=== PATIENT | female | born 1970 | race Caucasian/White ===

== ENCOUNTER 2016-06-25 00:14 | Emergency (ER) | payer OTHER ==
[~2016-06-25] VITALS: Ht 165.1 cm; Wt 113.4 kg
[~2016-06-25 00:14] MED LIST: FAMO20TA5 PO; OMEP20TA2 PO; OXYC-200 PO
[2016-06-25] MEDS ORDERED: CIPR250T3 PO (00:29)
[2016-06-25] MEDS ORDERED: METH1TAB PO (00:29)
[2016-06-25 00:38] LABS: KETONES,URINE 1+ (NEGATIVE); LEUKOCYTE ESTERASE ,URINE 1+ (NEGATIVE); NITRITE,URINE NEGATIVE (NEGATIVE); PH,URINE 6.5 (5-9); PROTEIN,URINE 2+ (NEGATIVE); UROBILINOGEN,URINE NORMAL (NORMAL)
[2016-06-25 00:49] LABS: BILIRUBIN,URINE 1+ (NEGATIVE); CALCIUM OXALATE CRYSTALS,UR MODERATE /LPF
[2016-06-25] MEDS ORDERED: NS IV 1000 ML 1,000 ML IV ONE (00:53)
[2016-06-25] MEDS ORDERED: ONDANSETRON 4 MG/2 ML (SDV) Z0FRAN IVP ONE (01:00)
[2016-06-25] MEDS ORDERED: fentaNYL INJECTION 100 MCG/2 ML AMP IVP ONE (01:00)
[2016-06-25] MEDS ORDERED: HYDROmorphone (DILAUDID) 2 MG/ML VIAL IVP STA (01:09)
[2016-06-25 01:20] LABS: BASOPHILS # (AUTO) 0.1 10^3/uL (0.0-0.1); BASOPHILS % (AUTO) 0 % (0-10); EOSINOPHILS # (AUTO) 0.2 10^3/uL (0.0-0.3); EOSINOPHILS % (AUTO) 1 % (0-10); LYMPHOCYTES # (AUTO) 2.5 X 10^3 (1.0-4.0); LYMPHOCYTES % (AUTO) 16 % (12-44); MEAN CORPUSCULAR HEMOGLOBIN 28 PG (25-34); MEAN CORPUSCULAR HGB CONC 34 G/DL (32-36); MEAN CORPUSCULAR VOLUME 82 FL (80-99); MEAN PLATELET VOLUME 9.5 FL (7.4-10.4); MONOCYTES % (AUTO) 7 % (0-12); NEUTROPHILS # (AUTO) 11.3 X 10^3 (1.8-7.8); NEUTROPHILS % (AUTO) 76 % (42-75); PLATELET COUNT 381 10^3/uL (130-400); RED BLOOD COUNT 4.55 10^6/uL (4.35-5.85); RED CELL DISTRIBUTION WIDTH 14.4 % (10.0-14.5)
[2016-06-25 01:35] LABS: BILIRUBIN,TOTAL 0.3 MG/DL (0.1-1.0); CALCIUM 9.1 MG/DL (8.5-10.1); CREATININE SERUM 1.12 MG/DL (0.60-1.30); POTASSIUM 3.8 MMOL/L (3.6-5.0); TOTAL PROTEIN 7.3 G/DL (6.4-8.2); hs C REACTIVE PROTEIN 4.26 MG/DL (0.00-0.50)
[2016-06-25 01:36] LABS: BAND NEUTROPHILS 0 %; BASOPHILS % (MANUAL) 0 %; EOSINOPHILS % (MANUAL) 1 %; LYMPHOCYTES % (MANUAL) 25 %; NEUTROPHILS % (MANUAL) 70 %
--- NOTE | 2016-06-25 01:36 | ED Abdominal Pain ---
General Chief Complaint: -Female Stated Complaint: BLADDER PAIN Nursing Triage Note: PELVIC PAIN RADIATING TO LEFT FLANK/BACK. WORSE TONIGHT Sepsis Screen: No Definite Risk Source of Information: Patient Exam Limitations: No Limitations History of Present Illness Time Seen By Provider: 00:22 Initial Comments This 45-year-old woman presents to the emergency room with left-sided pelvic and flank pain that started about one month ago. It was more mild in nature until the last few hours when it became severe. She is in obvious distress. She has been on antibiotics for about one month for urinary tract infection she has also been on Hyophen for bladder spasms. She denies any bowel problems. She has mild nausea without vomiting. She has urinary frequency. No fever. Her primary care provider is Dr. Love. She denies sexual activity. Allergies and Home Medications Allergies Coded Allergies: No Known Drug Allergies (Unverified , 07/27/10) Home Medications Ciprofloxacin HCl 250 Mg Tablet #28 1 CAP PO BID (Reported) [place]am/Me Blue/Ba/Salicy/Hyo 1 Each Tablet 1 EACH PO UD (Reported) Oxycodone HCl/Acetaminophen 1 Each Tablet #30 1-2 EACH PO Q6H PRN PRN PAIN Prescribed by: LOU MARISCAL on 06/25/168 Phenazopyridine HCl 200 Mg Tablet #10 1 TAB PO TID PRN PRN PAIN Prescribed by: LOU MARISCAL on 06/25/168 Review of Systems Constitutional: no symptoms reported EENTM: No Symptoms Reported Respiratory: No Symptoms Reported Cardiovascular: No Symptoms Reported Gastrointestinal: See HPI Genitourinary: See HPI Musculoskeletal: no symptoms reported Skin: no symptoms reported Psychiatric/Neurological: No Symptoms Reported Endocrine: No Symptoms Reported Past Uwtxwrd-Xikdno-Rsqvfp Hx Patient Social History Alcohol Use: Occasionally Uses Recreational Drug Use: No Smoking Status: Never a Smoker Recent Foreign Travel: No Contact w/Someone Who Travel: No Recent Infectious Disease Expo: No Recent Hopitalizations: No Physical Abuse Screen: No Sexual Abuse: No Immunizations Up To Date Tetanus Booster (TDap): Unknown Seasonal Allergies Seasonal Allergies: No Surgeries HX Surgeries: Yes (BACK) Surgeries: Gallbladder, Orthopedic Respiratory Hx Respiratory Disorders: No Cardiovascular Hx Cardiac Disorders: No Neurological Hx Neurological Disorders: No Reproductive System : No Hx Reproductive Disorders: No Genitourinary Hx Genitourinary Disorders: No Gastrointestinal Hx Gastrointestinal Disorders: No Musculoskeletal Hx Musculoskeletal Disorders: No Endocrine Hx Endocrine Disorders: Yes (obesity) HEENT HX ENT Disorders: No Cancer Hx Cancer: No Psychosocial Hx Psychiatric Problems: No Integumentary HX Skin/Integumentary Disorder: No Blood Transfusions Hx Blood Disorders: No Family Medical History Significant Family History: COPD, Hypertension Physical Exam Vital Signs VS - Last 72 Hours, by Label 06/25/16 00:29 Temp 99.7 Pulse 115 Resp 24 B/P 160/96 Pulse Ox 99 O2 Delivery Room Air Capillary Refill : Less Than 3 Seconds General Appearance: WD/WN moderate distress HEENT: PERRL/EOMI normal ENT inspection Neck: normal inspection Respiratory: lungs clear normal breath sounds no respiratory distress no accessory muscle use Cardiovascular: no edema no murmur tachycardia Gastrointestinal: normal bowel sounds soft tenderness (throughout the left abdomen) Extremities: normal inspection no pedal edema Back: normal inspection no CVA tenderness Neurologic/Psychiatric: retirement benefits specialist II-XII nml as tested no motor/sensory deficits alert normal mood/affect oriented x 3 Skin: normal color warm/dry Progress/Results/Core Measures Results/Orders Lab Results Laboratory Tests Test 06/25/16 00:25 06/25/16 01:07 Range/Units Urine Bacteria TRACE /HPF Urine Bilirubin 1+ H NEGATIVE Urine Calcium Oxalate Crystals MODERATE H /LPF Urine Casts NONE /LPF Urine Clarity CLEAR Urine Color OTHER H Urine Crystals PRESENT H /LPF Urine Culture Indicated YES Urine Glucose (UA) NEGATIVE NEGATIVE Urine Ketones 1+ H NEGATIVE Urine Leukocyte Esterase 1+ H NEGATIVE Urine Mucus NEGATIVE /LPF Urine Nitrite NEGATIVE NEGATIVE Urine Protein 2+ H NEGATIVE Urine RBC NONE /HPF Urine RBC (Auto) 2+ H NEGATIVE Urine Specific [place] 1.025 H 1.016-1.022 Urine Squamous Epithelial Cells 5-10 /HPF Urine Urobilinogen NORMAL NORMAL MG/DL Urine WBC NONE /HPF Urine pH 6.5 5-9 Alanine Aminotransferase (ALT/SGPT) 22 0-55 U/L Albumin 4.0 3.2-4.5 G/DL Alkaline Phosphatase 76 40-136 U/L Anion Gap 13 5-14 MMOL/L Aspartate Amino Transf (AST/SGOT) 17 5-34 U/L BUN/Creatinine Ratio 11 Band Neutrophils 0 % Basophils # (Auto) 0.1 0.0-0.1 10^3/uL Basophils % (Manual) 0 % Basophils (%) (Auto) 0 0-10 % Blood Morphology Comment NORMAL Blood Urea Nitrogen 12 7-18 MG/DL C-Reactive Protein High Sensitivity 4.26 H 0.00-0.50 MG/DL Calcium Level 9.1 8.5-10.1 MG/DL Carbon Dioxide Level 21 21-32 MMOL/L Chloride Level 104 98-107 MMOL/L Creatinine 1.12 0.60-1.30 MG/DL Eosinophils # (Auto) 0.2 0.0-0.3 10^3/uL Eosinophils % (Manual) 1 % Eosinophils (%) (Auto) 1 0-10 % Estimat Glomerular Filtration Rate 53 Glucose Level 109 H 70-105 MG/DL Hematocrit 37 35-52 % Hemoglobin 12.7 11.5-16.0 G/DL Lipase 14 8-78 U/L Lymphocytes # (Auto) 2.5 1.0-4.0 X 10^3 Lymphocytes % (Manual) 25 % Lymphocytes (%) (Auto) 16 12-44 % Mean Corpuscular Hemoglobin 28 25-34 PG Mean Corpuscular Hemoglobin Concent 34 32-36 G/DL Mean Corpuscular Volume 82 80-99 FL Mean Platelet Volume 9.5 7.4-10.4 FL Monocytes # (Auto) 1.0 0.0-1.0 X 10^3 Monocytes % (Manual) 4 % Monocytes (%) (Auto) 7 0-12 % Neutrophils # (Auto) 11.3 H 1.8-7.8 X 10^3 Neutrophils % (Manual) 70 % Neutrophils (%) (Auto) 76 H 42-75 % Platelet Count 381 130-400 10^3/uL Potassium Level 3.8 3.6-5.0 MMOL/L Red Blood Count 4.55 4.35-5.85 10^6/uL Red Cell Distribution Width 14.4 10.0-14.5 % Sodium Level 138 135-145 MMOL/L Total Bilirubin 0.3 0.1-1.0 MG/DL Total Protein 7.3 6.4-8.2 G/DL White Blood Count 15.0 H 4.3-11.0 10^3/uL My Orders Orders-LOU BRAVO MD Ua Culture If Indicated (06/25/16 00:22) Urine Culture (06/25/16 00:25) Cbc With Automated Diff (06/25/16 00:53) Comprehensive Metabolic Panel (06/25/16 00:53) Hs C Reactive Protein (06/25/16 00:53) Lipase (06/25/16 00:53) Saline Lock/Iv-Start (06/25/16 00:53) Ns Iv 1000 Ml (Sodium Chloride 0.9%) (06/25/16 00:53) Fentanyl Injection (Sublimaze Injection (06/25/16 01:00) Ondansetron Injection (Zofran Injectio (06/25/16 01:00) Ct Abdomen/Pelvis W (06/25/16 00:57) Hydromorphone Injection (Dilaudid Inject (06/25/16 01:09) Manual Differential (06/25/16 01:07) Iohexol Injection (Omnipaque 350 Mg/Ml 1 (06/25/16 01:45) Ns (Ivpb) (Sodium Chloride 0.9% Ivpb Bag (06/25/16 01:45) Ketorolac Injection (Toradol Injection) (06/25/16 02:00) Phenazopyridine Tablet (Pyridium Tablet) (06/25/16 02:45) Oxycodone/Apap 5/325mg Tablet (Percocet (06/25/16 02:45) Abdomen/Kub 1view (06/25/16 02:49) Medications Given in ED Current Medications Medications Dose Ordered Sig/Tyrese Route Start Time Stop Time Status Last Admin Dose Admin Fentanyl Citrate 100 mcg ONCE ONCE IVP 06/25/16 01:00 06/25/16 01:01 DC 06/25/16 01:05 100 MCG Ketorolac Tromethamine 30 mg ONCE ONCE IVP 06/25/16 02:00 06/25/16 02:01 DC 06/25/16 02:00 30 MG Ondansetron HCl 4 mg ONCE ONCE IVP 06/25/16 01:00 06/25/16 01:01 DC 06/25/16 01:05 4 MG Oxycodone/ Acetaminophen 1 tab ONCE ONCE PO 06/25/16 02:45 06/25/16 02:46 DC 06/25/16 02:53 1 TAB Phenazopyridine HCl 200 mg ONCE ONCE PO 06/25/16 02:45 06/25/16 02:46 DC 06/25/16 02:52 200 MG Sodium Chloride 1,000 ml @ 0 mls/hr Q0M ONCE IV 06/25/16 00:53 06/25/16 00:56 DC 06/25/16 01:05 0 MLS/HR Vital Signs/I&O Vital Sign - Last 12Hours 06/25/16 00:29 Temp 99.7 Pulse 115 Resp 24 B/P 160/96 Pulse Ox 99 O2 Delivery Room Air Blood Pressure Mean: 117 Point of Care Testing Urine -Bedside: Negative Progress Note #1: Time: 01:37 Progress Note Patient is now on CT for evaluation of her abdominal pain. She was initially treated with fentanyl 100 g which was insufficient for treatment of her pain. She was still in distress from pain. Dilaudid 1 mg was added. Zofran was administered for nausea. IV fluids are infusing. Progress Note #2: Time: 03:02 Progress Note Patient was found to have a small left distal ureteral stone by CT scan. Toradol was added to her pain management and she has comfortable. A ring- enhancing ovarian cyst was also noted on the left. Patient is aware of the cyst and she was encouraged to follow up with her primary care provider to monitor stability. Patient was given Percocet and Pyridium prior to dismissal to help her get through the night. A strainer was provided. She already has an appointment with Dr. Chaudhry for Monday. Diagnostic Imaging Diagonstic Imaging: CT Plain Films/CT/US/NM/MRI: abdomen, pelvis Comments CT abdomen and pelvis viewed by me and stat rad report reviewed. There is a small distal left ureteral stone measuring approximately 3 x 4 mm with associated left hydroureter and hydronephrosis. Ring-enhancing left ovarian cyst was also noted. Departure Impression Impression: Primary Impression: Left ureteral stone Additional Impressions: Left sided abdominal pain Ovarian cyst, left Disposition: HOME, SELF-CARE Condition: Improved Departure-Patient Inst. Decision time for Depature: 02:40 Referrals: RACHID LOVE DO (PCP/Family) Primary Care Physician Patient Instructions: Kidney Stones in Adults Add. Discharge Instructions: Complete your antibiotics as prescribed. Drink plenty of clear liquids. You may discontinue Hyophen. Use Percocet and peridium as prescribed. Keep your appointment with Dr. Chaudhry. Return to the emergency room if symptoms worsen. Please follow-up with your primary care provider or women's health provider regarding your ovarian cyst. It needs to be monitored for stability. All discharge instructions reviewed with patient and/or family. Voiced understanding. Scripts Phenazopyridine HCl (Pyridium)200 Mg Tablet1 Tab PO TID PRN PAIN #10 TAB Prov:LOU BRAVO MD 06/25/16 Oxycodone HCl/Acetaminophen (Percocet 5-325 mg Tablet)1 Each Tablet1-2 Each PO Q6H PRN PAIN #30 TAB Prov:LOU BRAVO MD 06/25/16 Copy Copies To 1: TORI CHAUDHRY MD Copies To 2: RACHID LOVE JOSHUA T MD Jun 25, 2016 01:36
[2016-06-25] MEDS ORDERED: NS 100 ML (IVPB) BAG IV ONE (01:45)
[2016-06-25] MEDS ORDERED: IOHEXOL 350 MG/ML 100 ML (OMNIPAQUE 350) VIAL IV ONE (01:45)
[2016-06-25] MEDS ORDERED: KETOROLAC 30 MG/ML VIAL IVP ONE (02:00)
[2016-06-25] MEDS ORDERED: oxyCODONE/APAP 5/325MG (PERCOCET 5) TABLET PO ONE (02:45)
[2016-06-25] MEDS ORDERED: PHENAZOPYRIDINE 100 MG (PYRIDIUM) TABLET PO ONE (02:45)
[2016-06-25] MEDS ORDERED: OXYC-197 PO (02:48)
[2016-06-25] MEDS ORDERED: PHEN-640 PO (02:48)
[2016-06-25 03:03] VITALS: BP 132/84
--- NOTE | 2016-06-25 07:40 | Diagnostic Imaging Report ---
INDICATION: Left lower quadrant pain. TECHNIQUE: Single supine view of the abdomen 3:19 AM CORRELATION STUDY: None FINDINGS: There is nonvisualization of contrast within the right ureter; however, contrast over the kidney demonstrates no significant caliectasis. Left collecting system unremarkable. Urinary bladder unremarkable. Overlying bowel gas pattern has a nonobstructive appearance. Clips in the right upper quadrant compatible with postcholecystectomy clips. Additional clip in the right mid abdomen superimposed over the ascending colon. IMPRESSION: Nonvisualization of the right ureter on postcontrast imaging, however, no significant caliectasis. Left collecting system unremarkable. Mild severity fecal retention with nonobstructive-appearing bowel gas pattern. Dictated by: Dictated on workstation # [id number]
--- NOTE | 2016-06-25 07:45 | Diagnostic Imaging Report ---
PROCEDURE: CT abdomen and pelvis with contrast. TECHNIQUE: Multiple contiguous axial images were obtained through the abdomen and pelvis after administration of intravenous contrast. INDICATION: Left lower quadrant pain radiating towards the back x1 month. CORRELATION STUDY: 07/27/2010 FINDINGS: LOWER THORAX: Lung bases clear. Small hiatal hernia with minimal wall thickening suggested. LIVER: Diffuse hepatic steatosis. GALLBLADDER: Post cholecystectomy changes. Additional displaced clip over the right anterior mid abdomen. SPLEEN: Unremarkable. PANCREAS: Unremarkable. ADRENAL GLANDS: Unremarkable. KIDNEYS: Mild left-sided hydronephrosis owing to a small stone in the distal left ureter measuring 3 x 1 mm. Right kidney unremarkable. ABDOMINAL AORTA: Unremarkable, nonaneurysmal. GASTROINTESTINAL TRACT: No obstruction or inflammation. Appendix projects medially in the right lower quadrant and unremarkable. No abdominal ascites or free air. URINARY BLADDER: Relatively decompressed not well evaluated. REPRODUCTIVE: Uterus unremarkable. There is fullness of the left adnexa which is likely partially collapsing left ovarian cyst measuring approximately 3.8 cm. No free pelvic fluid. OSSEOUS STRUCTURES: No acute abnormality. IMPRESSION: 1. Mild left-sided obstruction owing to thin 3 x 1 mm stone distal left ureter. 2. There is complex appearance of the left ovary which is prominent. May be associated with collapsing ovarian cyst. Perhaps consideration for pelvic sonography for followup. Dictated by: Dictated on workstation # [id number]
== END 2016-06-25 03:07 | disposition home or self-care (01) ==
LOC: EDUNIT# 00:14 → ER 00:17
DX: N13.2 Hydronephrosis with renal and ureteral calculous obstruction (principal); N83.202 Unspecified ovarian cyst, left side
CPT/HCPCS: 36415; 74000; 74177; 80053; 81000; 83690; 84703; 85007; 85027; 86141; 87088; 96361; 96374; 96375; 96376

== ENCOUNTER 2016-07-07 05:37 | Outpatient (CLI) | payer OTHER ==
[~2016-07-07] VITALS: Ht 165.1 cm; Wt 132.0 kg
[~2016-07-07 05:37] MED LIST changes: +CIPR250T3 PO; +METH1TAB PO; +OXYC-197 PO; +PHEN-640 PO
--- OUTSIDE RECORDS SUMMARY | 2016-07-07 05:40 | XMS REPORT | Continuity of Care Document ---
Author Author [facility] Organization [facility] Address Unknown Phone Unavailable Care Team Providers Care Sole Scraper Name Role Phone RACHID DIAL DO PCP Insurance Providers Payer Name Policy Number Subscriber Name Relationship [employer] [id number] Madelyn Lechuga Self / Same As Patient Advance Directives Directive Response Recorded Date/Time Advance Directives No 06/25/16 12:29am Resuscitation Status Full Code 06/25/16 12:29am Chief Complaint and Reason for Visit Chief Complaint -Female Reason for Visit [id number] Left sided abdominal pain [id number] Problems Active Problems Medical Problem Onset Date Status Left sided abdominal pain Unknown Acute Left ureteral stone Unknown Acute Ovarian cyst, left Unknown Acute Medications Current Home Medications Medication Dose Units Route Directions Days/Qty Instructions Start Date Ciprofloxacin Hcl 250 Mg 1 Cap Oral Twice A Day 06/25/16 [place]/Me Blue/Ba/Salicy/Hyo 1 Each 1 Each Oral As Directed Oxycodone Hcl/Acetaminophen 1 Each 1-2 Each Oral Every 6 Hours as needed for Pain 30 06/25/16 Phenazopyridine Hcl 200 Mg 1 Tab Oral Three Times A Day as needed for Pain 10 06/25/16 Past Home Medications Medication Directions Ordered Status Oxycodone Hcl/Acetaminophen 1 Each Tablet, 1 Each Oral Every 4HRS 07/27/10 Discontinued Omeprazole 20 Mg Tablet.dr, 20 Mg Oral Twice A Day 07/27/10 Discontinued Famotidine (Pepcid) 20 Mg Tablet, 1 Each Oral Twice A Day 07/27/10 Discontinued Social History Social History Problem Response Recorded Date/Time Alcohol Use Occasionally Uses 06/25/2016 12:29am Recreational Drug Use No 06/25/2016 12:29am Recent Foreign Travel No 06/25/2016 12:29am Recent Infectious Disease Exposure No 06/25/2016 12:29am Smoking Status Never a Smoker 06/25/2016 12:29am Recent Hopitalizations No 06/25/2016 12:29am Query Response Start Date Stop Date Smoking Status Never a Smoker Hospital Discharge Instructions No hospital discharge instructions. Plan of Care Discharge Date 06/25/16 3:07am Disposition 01 HOME, SELF-CARE Condition at Discharge Improved Instructions/Education Provided Kidney Stones in Adults Prescriptions See Medication Section Referrals RACHID DIAL DO - Primary Care Physician Additional Instructions/Education Complete your antibiotics as prescribed. Drink plenty of clear liquids. You may discontinue Hyophen. Use Percocet and peridium as prescribed. Keep your appointment with Dr. Valderrama. Return to the emergency room if symptoms worsen. Please follow-up with your primary care provider or women's health provider regarding your ovarian cyst. It needs to be monitored for stability. Strain your urine and present any stones collected at your follow-up appointment. All discharge instructions reviewed with patient and/or family. Voiced understanding. Functional Status No functional status results. Allergies, Adverse Reactions, Alerts No known allergies. Immunizations No immunization records. Vital Signs Acute Vital Signs Vital Response Date/Time Temperature (Fahrenheit) 98.1 degrees F (97.6 - 99.5) 06/25/2016 3:03am Temperature (Calculated Celsius) 36.56929 degrees C (36.4 - 37.5) 06/25/2016 3:03am Temperature Source Temporal 06/25/2016 3:03am Pulse Rate (adult) 120 bpm (60 - 90) 06/25/2016 3:03am Respiratory Rate 16 bpm (12 - 24) 06/25/2016 3:03am O2 Sat by Pulse Oximetry 95 % (88 - 100) 06/25/2016 3:03am Blood Pressure 132/84 mm Hg 06/25/2016 3:03am Blood Pressure Mean 117 mm Hg 06/25/2016 12:29am Pain Numeric Pain Scale 2 06/25/2016 3:03am Height (Feet) 5 feet 06/25/2016 12:29am Height (Inches) 5 inches 06/25/2016 12:29am Height (Calculated Centimeters) 165.972508 cm 06/25/2016 12:29am Weight (Pounds) 250 pounds 06/25/2016 12:29am Weight (Calculated Kilograms) 113.471434 kilograms 06/25/2016 12:29am Capillary Refill Capillary Refill Less Than 3 Seconds 06/25/2016 12:29am Height 5 ft 5 in Weight 250 lb Body Mass Index 41.6 kg/m^2 Results Laboratory Results Test Name Result Units Flags Reference Collection Date/Time Result Date/ Time Comments White Blood Count 15.0 10^3/uL H 4.3-11.0 06/25/2016 1:0706/25/2016 1: 22am Red Blood Count 4.55 10^6/uL 4.35-5.85 06/25/2016 1:0706/25/2016 1: 22am Hemoglobin 12.7 G/DL 11.5-16.0 06/25/2016 1:0706/25/2016 1:22am Hematocrit 37 % 35-52 06/25/2016 1:0706/25/2016 1:22am Mean Corpuscular Volume 82 FL 80-99 06/25/2016 1:0706/25/2016 1: 22am Mean Corpuscular Hemoglobin 28 PG 25-34 06/25/2016 1:07am 06/25/2016 1: 22am Mean Corpuscular Hemoglobin Concent 34 G/DL 32-36 06/25/2016 1:07 1:22am Red Cell Distribution Width 14.4 % 10.0-14.5 06/25/2016 1:072016 1:22am Platelet Count 381 10^3/uL 130-400 06/25/2016 1:0706/25/2016 1:22am Mean Platelet Volume 9.5 FL 7.4-10.4 06/25/2016 1:07am 06/25/2016 1: 22am Neutrophils (%) (Auto) 76 % H 42-75 06/25/2016 1:0706/25/2016 1:22am Lymphocytes (%) (Auto) 16 % 12-44 06/25/2016 1:0706/25/2016 1:22am Monocytes (%) (Auto) 7 % 0-12 06/25/2016 1:0706/25/2016 1:22am Eosinophils (%) (Auto) 1 % 0-10 06/25/2016 1:0706/25/2016 1:22am Basophils (%) (Auto) 0 % 0-10 06/25/2016 1:0706/25/2016 1:22am Neutrophils # (Auto) 11.3 X 10^3 H 1.8-7.8 06/25/2016 1:0706/25/2016 1 :22am Lymphocytes # (Auto) 2.5 X 10^3 1.0-4.0 06/25/2016 1:0706/25/2016 1: 22am Monocytes # (Auto) 1.0 X 10^3 0.0-1.0 06/25/2016 1:0706/25/2016 1: 22am Eosinophils # (Auto) 0.2 10^3/uL 0.0-0.3 06/25/2016 1:07am 06/25/2016 1 :22am Basophils # (Auto) 0.1 10^3/uL 0.0-0.1 06/25/2016 1:0706/25/2016 1: 22am Neutrophils % (Manual) 70 % 06/25/2016 1:0706/25/2016 1:36am Band Neutrophils 0 % 06/25/2016 1:0706/25/2016 1:36am Lymphocytes % (Manual) 25 % 06/25/2016 1:07am 06/25/2016 1:36am Monocytes % (Manual) 4 % 06/25/2016 1:07am 06/25/2016 1:36am Eosinophils % (Manual) 1 % 06/25/2016 1:07am 06/25/2016 1:36am Basophils % (Manual) 0 % 06/25/2016 1:07am 06/25/2016 1:36am Blood Morphology Comment NORMAL 06/25/2016 1:0706/25/2016 1: 36am Urine Color OTHER * 06/25/2016 12:25am 06/25/2016 12:50am SPECIMEN IS BLUE/TEAL IN COLOR WHICH MAY CAUSE COLOR INTERFERENCE WITH DIPSTICK ANALYSIS. Urine Clarity CLEAR 06/25/2016 12:25am 06/25/2016 12:50am Urine pH 6.5 5-9 06/25/2016 12:25am 06/25/2016 12:50am Urine Specific [place] 1.025 * 1.016-1.022 06/25/2016 12:25am 2016 12:50am Urine Protein 2+ * NEGATIVE 06/25/2016 12:25am 06/25/2016 12:50am Urine Glucose (UA) NEGATIVE NEGATIVE 06/25/2016 12:25am 06/25/2016 12 :50am Urine RBC (Auto) 2+ * NEGATIVE 06/25/2016 12:25am 06/25/2016 12:50am Urine Ketones 1+ * NEGATIVE 06/25/2016 12:25am 06/25/2016 12:50am Urine Nitrite NEGATIVE NEGATIVE 06/25/2016 12:25am 06/25/2016 12: 50am Urine Bilirubin 1+ * NEGATIVE 06/25/2016 12:25am 06/25/2016 12:50am CONFIRMATORY ICTOTEST IS NEGATIVE. Urine Urobilinogen NORMAL MG/DL NORMAL 06/25/2016 12:25am 06/25/2016 12 :50am Urine Leukocyte Esterase 1+ * NEGATIVE 06/25/2016 12:25am 06/25/2016 12 :50am Urine RBC NONE /HPF 06/25/2016 12:25am 06/25/2016 12:50am MICROSCOPIC ANALYSIS PERFORMED ON 1 ML OF UNSPUN SPECIMEN DUE TO LOW VOLUME. Urine WBC NONE /HPF 06/25/2016 12:25am 06/25/2016 12:50am Urine Bacteria TRACE /HPF 06/25/2016 12:25am 06/25/2016 12:50am Urine Squamous Epithelial Cells 5-10 /HPF 06/25/2016 12:25am 2016 12:50am Urine Crystals PRESENT /LPF * 06/25/2016 12:25am 06/25/2016 12:50am Urine Calcium Oxalate Crystals MODERATE /LPF * 06/25/2016 12:25am 06/25 12:50am Urine Casts NONE /LPF 06/25/2016 12:25am 06/25/2016 12:50am Urine Mucus NEGATIVE /LPF 06/25/2016 12:06/25/2016 12:50am Urine Culture Indicated YES 06/25/2016 12:2506/25/2016 12:50am Sodium Level 138 MMOL/L 135-145 06/25/2016 1:06/25/2016 1:36am Potassium Level 3.8 MMOL/L 3.6-5.0 06/25/2016 1:06/25/2016 1:36am Chloride Level 104 MMOL/L 98-107 06/25/2016 1:06/25/2016 1:36am Carbon Dioxide Level 21 MMOL/L 21-32 06/25/2016 1:06/25/2016 1: 36am Anion Gap 13 MMOL/L 5-14 06/25/2016 1:06/25/2016 1:36am Blood Urea Nitrogen 12 MG/DL 7-18 06/25/2016 1:0706/25/2016 1:36am Creatinine 1.12 MG/DL 0.60-1.30 06/25/2016 1:06/25/2016 1:36am BUN/Creatinine Ratio 11 06/25/2016 1:06/25/2016 1:36am Estimat Glomerular Filtration Rate 53 06/25/2016 1:06/25/2016 1:36am GFR INTERPRETIVE DATA UNITS FOR ESTIMATED GFR (eGFR): mL/min/1.73 M2 REFERENCE RANGE FOR ESTIMATED GFR (eGFR) eGFR NORMAL eGFR >60 MODERATELY DECREASED eGFR 30-59 SEVERLY DECREASED eGFR 15-29 KIDNEY FAILURE <15 (OR DIALYSIS) Glucose Level 109 MG/DL H 70-105 06/25/2016 1:06/25/2016 1:36am Calcium Level 9.1 MG/DL 8.5-10.1 06/25/2016 1:06/25/2016 1:36am Total Bilirubin 0.3 MG/DL 0.1-1.0 06/25/2016 1:06/25/2016 1:36am Alkaline Phosphatase 76 U/L 40-136 06/25/2016 1:06/25/2016 1:36am Aspartate Amino Transf (AST/SGOT) 17 U/L 5-34 06/25/2016 1:2016 1:36am Alanine Aminotransferase (ALT/SGPT) 22 U/L 0-55 06/25/2016 1:07am 06/25 1:36am Total Protein 7.3 G/DL 6.4-8.2 06/25/2016 1:07am 06/25/2016 1:36am Albumin 4.0 G/DL 3.2-4.5 06/25/2016 1:07am 06/25/2016 1:36am Lipase 14 U/L 8-78 06/25/2016 1:07am 06/25/2016 1:36am C-Reactive Protein High Sensitivity 4.26 MG/DL H 0.00-0.50 06/25/2016 1: 07am 06/25/2016 1:36am Procedures No known history of procedures. Encounters Encounter Location Arrival/Admit Date Discharge/Depart Date Attending Provider Departed Emergency Room [facility] 06/25/16 12:17am 3:07am LOU BRAVO MD Recent Diagnosis
[2016-07-07] MEDS ORDERED: CEPH500T PO (11:08)
[2016-07-07 11:55] VITALS: BP 125/68
[2016-07-07 12:43] LABS: PHOSPHORUS 3.1 MG/DL (2.3-4.7); URIC ACID 6.5 MG/DL (2.6-7.2)
[2016-07-08 09:15] LABS: CALCIUM PARA THYROID HORMONE 8.9 mg/dL (8.5-10.5)
== END 2016-07-07 12:08 | disposition home or self-care (01) ==
LOC: PREOP 05:37
PROVIDERS: ATTEND Urology
DX: Z01.812 Encounter for preprocedural laboratory examination (principal); N20.1 Calculus of ureter; Z11.2 Encounter for screening for other bacterial diseases
CPT/HCPCS: 36415; 83970; 84100; 84550; 87081

== ENCOUNTER 2016-07-07 07:31 | Emergency (ER) | payer OTHER ==
[~2016-07-07] VITALS: Ht 165.1 cm; Wt 113.4 kg
--- OUTSIDE RECORDS SUMMARY | 2016-07-07 07:38 | XMS REPORT | Continuity of Care Document ---
Author Author [facility] Organization [facility] Address Unknown Phone Unavailable Care Team Providers Care Gifted Program Teacher Name Role Phone RACHID DIAL DO PCP Insurance Providers Payer Name Policy Number Subscriber Name Relationship [employer] [id number] Madelyn Lechuga Self / Same As Patient Advance Directives Directive Response Recorded Date/Time Advance Directives No 06/25/16 12:29am Resuscitation Status Full Code 06/25/16 12:29am Chief Complaint and Reason for Visit Chief Complaint -Female Reason for Visit [id number] Left sided abdominal pain [id number] Problems Active Problems Medical Problem Onset Date [...] - 99.5) 06/25/2016 3:03am Temperature (Calculated Celsius) 36.30755 degrees C (36.4 - 37.5) 06/25/2016 3:03am [...] 5 inches 06/25/2016 12:29am Height (Calculated Centimeters) 165.130249 cm 06/25/2016 12:29am Weight (Pounds) 250 pounds 06/25/2016 12:29am Weight (Calculated Kilograms) 113.704398 kilograms 06/25/2016 12:29am Capillary Refill Capillary Refill [...] 5-9 06/25/2016 12:25am 06/25/2016 12:50am Urine Specific [place] 1.025 * 1.016-1.022 06/25/2016 12:25am 2016 12:50am [...] Date Attending Provider Departed Emergency Room [facility] 06/25/16 12:17am 3:07am LOU BRAVO MD Recent Diagnosis
[2016-07-07] MEDS ORDERED: NS IV 1000 ML 1,000 ML IV ONE (07:50)
[2016-07-07] MEDS ORDERED: HYDROmorphone (DILAUDID) 2 MG/ML VIAL IVP STA (07:50)
[2016-07-07] MEDS ORDERED: KETOROLAC 30 MG/ML VIAL IVP STA (07:50)
[2016-07-07 08:03] LABS: BILIRUBIN,URINE NEGATIVE (NEGATIVE); KETONES,URINE NEGATIVE (NEGATIVE); LEUKOCYTE ESTERASE ,URINE 1+ (NEGATIVE); NITRITE,URINE NEGATIVE (NEGATIVE); PH,URINE 5 (5-9); PROTEIN,URINE 1+ (NEGATIVE); UROBILINOGEN,URINE NORMAL (NORMAL)
--- NOTE | 2016-07-07 08:03 | ED GU-Female ---
General Chief Complaint: Abdominal/GI Problems Stated Complaint: L FLANK PAIN Nursing Triage Note: PT STATES SHE HAS A KIDNEY STONE, CC OF LT FLANK PAIN RADIATING TO THE GROIN. Nursing Sepsis Screen: No Definite Risk Source: patient Exam Limitations: no limitations History of Present Illness Time seen by provider: 07:43 Initial Comments Here with report of left flank pain and has history of kidney stone. She states the pain radiates to the groin. Noted some blood in her urine today. Kidney stone noted on CT exam on 25 June. She is due to have follow-up with urologist on 06/28/16 but had influenza and was unable to follow-up that today but did follow-up on 07/05/16. She is due to have procedure stone doesn't clear next week. She had another attack of the pain today that was associated with a blood. It was not related to Percocet so she presented here for further evaluation per instructions from the urologist. Timing/Duration: this morning Severity/Quality: severe, aching, sharp Location: left flank Radiation: groin Activities at Onset: none Associated Symptoms: No fever/chills, lower back pain nausea/vomiting Allergies and Home Medications Allergies Coded Allergies: No Known Drug Allergies (Unverified , 07/27/10) Home Medications Ciprofloxacin HCl 250 Mg Tablet #28 1 CAP PO BID (Reported) [place]/Me Blue/Ba/Salicy/Hyo 1 Each Tablet 1 EACH PO UD (Reported) Oxycodone HCl/Acetaminophen 1 Each Tablet #30 1-2 EACH PO Q6H PRN PRN PAIN Prescribed by: LOU MARISCAL on 06/25/16 0248 Phenazopyridine HCl 200 Mg Tablet #10 1 TAB PO TID PRN PRN PAIN Prescribed by: LOU MARISCAL on 06/25/16 0248 Constitutional: see HPINo chills, No fever EENTM: no symptoms reported Respiratory: no symptoms reported Cardiovascular: no symptoms reported Gastrointestinal: see HPI abdominal pain nauseaNo vomiting Genitourinary: flank pain hematuria : No Musculoskeletal: back painNo muscle pain Skin: no symptoms reported All Other Systemes Reviewed Negative Unless Noted: Yes Past Mrqpuye-Sulqyc-Bidtls Hx Patient Social History Alcohol Use: Occasionally Uses Recreational Drug Use: No Smoking Status: Former Smoker Type Used: Cigarettes Recent Foreign Travel: No Contact w/Someone Who Travel: No Recent Infectious Disease Expo: No Recent Hopitalizations: No Immunizations Up To Date Tetanus Booster (TDap): Unknown Seasonal Allergies Seasonal Allergies: No Surgeries HX Surgeries: Yes (BACK) Surgeries: Gallbladder, Orthopedic Respiratory Hx Respiratory Disorders: No Cardiovascular Hx Cardiac Disorders: No Neurological Hx Neurological Disorders: No Reproductive System : No Hx Reproductive Disorders: No Genitourinary Hx Genitourinary Disorders: Yes Genitourinary Disorders: Kidney Stones Gastrointestinal Hx Gastrointestinal Disorders: No Musculoskeletal Hx Musculoskeletal Disorders: No Endocrine Hx Endocrine Disorders: Yes (obesity) HEENT HX ENT Disorders: No Cancer Hx Cancer: No Psychosocial Hx Psychiatric Problems: No Integumentary HX Skin/Integumentary Disorder: No Blood Transfusions Hx Blood Disorders: No Reviewed Nursing Assessment Reviewed/Agree w Nursing PMH: Yes Family Medical History Significant Family History: COPD, Hypertension Physical Exam Vital Signs Vital Sign - Last 12Hours 07/07/16 07:39 Temp 96.6 Pulse 77 Resp 22 B/P 140/85 Pulse Ox 97 O2 Delivery Room Air Capillary Refill : Less Than 3 Seconds General Appearance: WD/WN no apparent distress Neck: full range of motion supple Cardiovascular: regular rate, rhythm no murmur Respiratory: lungs clear normal breath sounds Gastrointestinal: soft tenderness (mild left lower quadrant) Back: normal inspection no CVA tenderness no vertebral tenderness Extremities: non-tender normal inspection Neurologic/Psychiatric: alert oriented x 3 Progress/Results/Core Measures Results/Orders Lab Results Laboratory Tests Test 07/07/16 05:03 07/07/16 07:50 Range/Units Alanine Aminotransferase (ALT/SGPT) 30 0-55 U/L Albumin 3.9 3.2-4.5 G/DL Alkaline Phosphatase 67 40-136 U/L Anion Gap 8 5-14 MMOL/L Aspartate Amino Transf (AST/SGOT) 18 5-34 U/L BUN/Creatinine Ratio 10 Basophils # (Auto) 0.1 0.0-0.1 10^3/uL Basophils (%) (Auto) 1 0-10 % Blood Urea Nitrogen 10 7-18 MG/DL Calcium Level 8.8 8.5-10.1 MG/DL Carbon Dioxide Level 24 21-32 MMOL/L Chloride Level 105 98-107 MMOL/L Creatinine 1.00 0.60-1.30 MG/DL Eosinophils # (Auto) 0.1 0.0-0.3 10^3/uL Eosinophils (%) (Auto) 1 0-10 % Estimat Glomerular Filtration Rate > 60 Glucose Level 112 H 70-105 MG/DL Hematocrit 37 35-52 % Hemoglobin 12.5 11.5-16.0 G/DL Lymphocytes # (Auto) 2.2 1.0-4.0 X 10^3 Lymphocytes (%) (Auto) 22 12-44 % Mean Corpuscular Hemoglobin 28 25-34 PG Mean Corpuscular Hemoglobin Concent 34 32-36 G/DL Mean Corpuscular Volume 82 80-99 FL Mean Platelet Volume 9.1 7.4-10.4 FL Monocytes # (Auto) 0.8 0.0-1.0 X 10^3 Monocytes (%) (Auto) 8 0-12 % Neutrophils # (Auto) 6.9 1.8-7.8 X 10^3 Neutrophils (%) (Auto) 68 42-75 % Platelet Count 344 130-400 10^3/uL Potassium Level 3.7 3.6-5.0 MMOL/L Red Blood Count 4.55 4.35-5.85 10^6/uL Red Cell Distribution Width 14.5 10.0-14.5 % Sodium Level 137 135-145 MMOL/L Total Bilirubin 0.4 0.1-1.0 MG/DL Total Protein 7.3 6.4-8.2 G/DL White Blood Count 10.1 4.3-11.0 10^3/uL Urine Bacteria MODERATE H /HPF Urine Bilirubin NEGATIVE NEGATIVE Urine Casts NONE /LPF Urine Clarity CLEAR Urine Color YELLOW Urine Crystals NONE /LPF Urine Culture Indicated YES Urine Glucose (UA) NEGATIVE NEGATIVE Urine Ketones NEGATIVE NEGATIVE Urine Leukocyte Esterase 1+ H NEGATIVE Urine Mucus MODERATE H /LPF Urine Nitrite NEGATIVE NEGATIVE Urine Protein 1+ H NEGATIVE Urine RBC 2-5 H /HPF Urine RBC (Auto) 5+ H NEGATIVE Urine Specific Braggs 1.020 1.016-1.022 Urine Squamous Epithelial Cells 5-10 /HPF Urine Urobilinogen NORMAL NORMAL MG/DL Urine WBC 5-10 H /HPF Urine pH 5 5-9 My Orders Orders-DEREK HOWARD MD Cbc With Automated Diff (07/07/16 07:50) Comprehensive Metabolic Panel (07/07/16 07:50) Ua Culture If Indicated (07/07/16 07:50) Ketorolac Injection (Toradol Injection) (07/07/16 07:50) Hydromorphone Injection (Dilaudid Inject (07/07/16 07:50) Saline Lock/Iv-Start (07/07/16 07:50) Ns Iv 1000 Ml (Sodium Chloride 0.9%) (07/07/16 07:50) Abdomen/Kub 1view (07/07/16 07:50) Us Renal Limited [id number] (07/07/16 07:50) Urine Culture (07/07/16 07:50) Us Non Ob Transvaginal [id number] (07/07/16 07:50) Ceftriaxone Injection (Rocephin Injectio (07/07/16 10:00) Medications Given in ED Current Medications Medications Dose Ordered Sig/Tyrese Route Start Time Stop Time Status Last Admin Dose Admin Ceftriaxone Sodium/Sodium Chloride 50 ml @ 100 mls/hr ONCE ONCE IV 07/07/16 10:00 07/07/16 10:29 DC 07/07/16 09:59 100 MLS/HR Sodium Chloride 1,000 ml @ 0 mls/hr Q0M ONCE IV 07/07/16 07:50 07/07/16 07:56 DC 07/07/16 08:55 1,000 MLS/HR Vital Signs/I&O Vital Sign - Last 12Hours 07/07/16 07:39 Temp 96.6 Pulse 77 Resp 22 B/P 140/85 Pulse Ox 97 O2 Delivery Room Air Blood Pressure Mean: 103 Progress Note : Progress Note Seen and evaluated. Chart reviewed from previous visit. IV, labs, UA, KUB and ultrasound left kidney and pelvis ordered. Dilaudid 1 mg IV and Toradol 30 mg IV ordered. Normal saline 1 L bolus. Monitor patient. 0950: Pain improved. Patient able to ambulate without difficulty. Rocephin 1 g IV for suspected urinary tract infection. I did discuss the case with Dr. Chaudhry. He will continue with previous plan for procedure notes Monday. I will continue outpatient antibiotics. 1019: I did discuss the case with Dr. Love. She is out of town tomorrow and is unable to follow-up but is requesting film process operator evaluation if possible. 1025: I did discuss the case with Dr. Landaverde. He will assist in follow-up with the patient. Patient is to go by his office after discharge and they will set up repeat ultrasound tomorrow due to concerns of left ovary with potentially a poor flow. This is discussed with the patient who verbalize understanding. Pain is markedly improved overall and she has no significant tenderness on repeat abdominal exam. Discharged home with return precautions. Patient verbalize understanding instructions and agreement with plan. Diagnostic Imaging Diagonstic Imaging: Ultrasound Plain Films/CT/US/NM/MRI: other (renal) Comments [facility]IA [place], [place] NAME: MADELYN ALATORRE [facility] REC#: [id number] PT STATUS: REG ER : 1970 PHYSICIAN: DEREK HOWARD MD ADMIT DATE: 07/07/16/ER Draft Date of Exam:07/07/16 US RENAL LIMITED [id number] Clinical indication: Patient with left flank pain. Exam: Limited renal ultrasound with focus on the left kidney. Comparison: CT scan of the abdomen and pelvis performed with IV contrast dated 06/25/2016. Findings: Again seen mild left hydronephrosis. Otherwise left kidney has normal cortical thickness, echogenicity, size, and shape. The right kidney measures 13.1 cm in craniocaudal dimension. The bladder is predominantly decompressed and unable to be appropriately evaluated. Single image of right kidney shows no significant abnormality as visualized. Impression: 1: Again seen mild left hydronephrosis. Patient was noted to have a stone in the distal left ureter on the comparison CT scan. 2: Bladder is decompressed and cannot be appropriately evaluated on this exam. This case was discussed with Dr. Derek Howard via the telephone on 07/07/2016 at 0930 hrs. Dictated on workstation # [id number] Dict: 07/07/16 0902 Trans: 07/07/16 0944 NATHALY [id number] Interpreted by: DILLON MACDONALD MD Electronically signed by: Reviewed: Discussed w/Radiologist Diagonstic Imaging: Xray Plain Films/CT/US/NM/MRI: abdomen [facility] [place], [place] NAME: MADELYN ALATORRE [facility] REC#: [id number] PT STATUS: REG ER : 1970 PHYSICIAN: DEREK HOWARD MD ADMIT DATE: 07/07/16/ER Draft Date of Exam:07/07/16 ABDOMEN/KUB 1VIEW INDICATION: Left kidney stone. Exam compared with study 06/25/2016. FINDINGS: There are two punctate left pelvic calcifications projecting along the course of the previously opacified left ureter. Tiny 2 to 3-mm distal left ureteral stones in the appropriate scenario could not be excluded. If indicated CT may provide additional utility. No opaque calculi projecting over the renal beds. No bowel obstruction. There are clips in the gallbladder fossa. IMPRESSION: Faint radiopacities in the left hemipelvis found at the level of the left ureter distally and may reflect tiny ureteral stones. Correlate clinically. If indicated CT may provide additional utility. No other significant finding. Dictated on workstation # [id number] Dict: 07/07/16 0855 Trans: 07/07/16 0909 OPHELIA [id number] Interpreted by: SARAH TEAGUE Electronically signed by: Scarlettgonsbrandon Imaging: Ultrasound Plain Films/CT/US/NM/MRI: pelvis Comments Date of Exam:07/07/16 US NON OB TRANSVAGINAL [id number] Clinical indication: Patient with left pelvic pain and constant burning. Exam: Transvaginal ultrasound pelvis. Comparison: Pelvic ultrasound dated 02/10/2011. CT scan abdomen and pelvis performed with IV contrast dated 06/25/2016. FINDINGS: There is a roughly 1.9 cm x 1.9 cm x 2.0 cm slightly heterogeneous hypoechoic mass involving the anterior aspect of the uterine fundus likely representing a fibroid. This was not seen on comparison pelvic ultrasound. Endometrial stripe measures 7 mm. The right ovary is not able to be visualized on this exam. Left ovary is within normal limits for size measuring 3.4 cm x 4.2 cm x 3.9 cm. There is no significant cystic changes seen. Doppler flow is difficult to evaluate within the left ovary region. Otherwise, the uterus has normal configuration, echogenicity, size, and shape and measures 8.9 cm x 5.4 cm x 4.7 cm. There is no significant free fluid in the pelvis. This case was discussed with echo vascular technologist who spoke with the performing echo vascular technologist after the exam. Impression: 1: Unable to obtain Doppler flow within the left ovary, but ovary is just within normal limits for size. There is no significant free fluid in the pelvis. This is nonspecific and early left ovarian torsion cannot be completely excluded. Clinical correlation for patient's symptoms is suggested. Short-term repeat pelvic ultrasound in 12-24 hours may help better evaluate for interval changes. 2: The right ovary was unable to be visualized and cannot be evaluated. 3: There is interval development of a 2.0 cm uterine fibroid. Results of this report was discussed with Dr. Derek Howard via the telephone on 07/07/2016 at 0930 hrs. Dictated on workstation # [id number] Dict: 07/07/1614 Trans: 07/07/16 0944 [facility] [phone] Interpreted by: DILLON MACDONALD MD Electronically signed by: Reviewed: Discussed w/Radiologist Departure Impression Impression: Primary Impression: Ovarian cyst, left Additional Impressions: Left ureteral stone Left sided abdominal pain Disposition: 01 HOME, SELF-CARE Condition: Improved Departure-Patient Inst. Decision time for Depature: 11:06 Referrals: SPENCER LANDAVERDE JACQUELINE S DO (PCP/Family) Primary Care Physician TORI CHAUDHRY MD Patient Instructions: Acute Abdomen (Belly Pain), Adult (DC), Kidney Stones in Adults, Ovarian Cyst (DC), Urinary Tract Infection, Adult (DC) Add. Discharge Instructions: All discharge instructions reviewed with patient and/or family. Voiced understanding. Take medications as directed. Follow-up with Dr. Landaverde's office today after discharge from here for getting set up for ultrasound tomorrow. Follow-up with your doctor next week. Keep appointment and outpatient requirements for the procedure that you're due to get with Dr. Chaudhry next week. Return for worse pain, fever, vomiting, weakness, breathing problems or other concerns as needed. Scripts Cephalexin 500 Mg [id number] Mg PO BID #20 TAB Prov:DEREK HOWARD MD 07/07/16 Copy Copies To 1: RACHID LOVE DO Copies To 2: SPENCER LANDAVERDE TIMOTHY D MD Jul 07, 2016 08:03
[2016-07-07 08:09] LABS: BASOPHILS # (AUTO) 0.1 10^3/uL (0.0-0.1); BASOPHILS % (AUTO) 1 % (0-10); EOSINOPHILS # (AUTO) 0.1 10^3/uL (0.0-0.3); EOSINOPHILS % (AUTO) 1 % (0-10); LYMPHOCYTES # (AUTO) 2.2 X 10^3 (1.0-4.0); LYMPHOCYTES % (AUTO) 22 % (12-44); MEAN CORPUSCULAR HEMOGLOBIN 28 PG (25-34); MEAN CORPUSCULAR HGB CONC 34 G/DL (32-36); MEAN CORPUSCULAR VOLUME 82 FL (80-99); MEAN PLATELET VOLUME 9.1 FL (7.4-10.4); MONOCYTES # (AUTO) 0.8 X 10^3 (0.0-1.0); MONOCYTES % (AUTO) 8 % (0-12); NEUTROPHILS # (AUTO) 6.9 X 10^3 (1.8-7.8); NEUTROPHILS % (AUTO) 68 % (42-75); PLATELET COUNT 344 10^3/uL (130-400); RED BLOOD COUNT 4.55 10^6/uL (4.35-5.85); RED CELL DISTRIBUTION WIDTH 14.5 % (10.0-14.5); WHITE BLOOD COUNT 10.1 10^3/uL (4.3-11.0)
[2016-07-07 08:31] LABS: ALANINE AMINOTRANSFERASE 30 U/L (0-55); ALBUMIN 3.9 G/DL (3.2-4.5); ANION GAP 8 MMOL/L (5-14); ASPARTATE AMINO TRANSFERASE 18 U/L (5-34); BILIRUBIN,TOTAL 0.4 MG/DL (0.1-1.0); BLOOD UREA NITROGEN 10 MG/DL (7-18); BUN/CREATININE RATIO 10; CALCIUM 8.8 MG/DL (8.5-10.1); CARBON DIOXIDE 24 MMOL/L (21-32); CHLORIDE 105 MMOL/L (98-107); GFR ESTIMATED > 60; GLUCOSE 112 MG/DL (70-105); POTASSIUM 3.7 MMOL/L (3.6-5.0); SODIUM 137 MMOL/L (135-145); TOTAL PROTEIN 7.3 G/DL (6.4-8.2)
--- NOTE | 2016-07-07 09:10 | Diagnostic Imaging Report ---
INDICATION: Left kidney stone. Exam compared with study 06/25/2016. FINDINGS: There are two punctate left pelvic calcifications projecting along the course of the previously opacified left ureter. Tiny 2 to 3-mm distal left ureteral stones in the appropriate scenario could not be excluded. If indicated CT may provide additional utility. No opaque calculi projecting over the renal beds. No bowel obstruction. There are clips in the gallbladder fossa. IMPRESSION: Faint radiopacities in the left hemipelvis found at the level of the left ureter distally and may reflect tiny ureteral stones. Correlate clinically. If indicated CT may provide additional utility. No other significant finding. Dictated by: Dictated on workstation # [id number]
--- NOTE | 2016-07-07 09:45 | Diagnostic Imaging Report ---
Clinical indication: Patient with left pelvic pain and constant burning. Exam: Transvaginal ultrasound pelvis. Comparison: Pelvic ultrasound dated 02/10/2011. CT scan abdomen and pelvis performed with IV contrast dated 06/25/2016. FINDINGS: There is a roughly 1.9 cm x 1.9 cm x 2.0 cm slightly heterogeneous hypoechoic mass involving the anterior aspect of the uterine fundus likely representing a fibroid. This was not seen on comparison pelvic ultrasound. Endometrial stripe measures 7 mm. The right ovary is not able to be visualized on this exam. Left ovary is within normal limits for size measuring 3.4 cm x 4.2 cm x 3.9 cm. There is no significant cystic changes seen. Doppler flow is difficult to evaluate within the left ovary region. Otherwise, the uterus has normal configuration, echogenicity, size, and shape and measures 8.9 cm x 5.4 cm x 4.7 cm. There is no significant free fluid in the pelvis. This case was discussed with generation technologist who spoke with the performing generation technologist after the exam. Impression: 1: Unable to obtain Doppler flow within the left ovary, but ovary is just within normal limits for size. There is no significant free fluid in the pelvis. This is nonspecific and early left ovarian torsion cannot be completely excluded. Clinical correlation for patient's symptoms is suggested. Short-term repeat pelvic ultrasound in 12-24 hours may help better evaluate for interval changes. 2: The right ovary was unable to be visualized and cannot be evaluated. 3: There is interval development of a 2.0 cm uterine fibroid. Results of this report was discussed with Dr. Derek Cabrera via the telephone on 07/07/2016 at 0930 hrs. Dictated by: Dictated on workstation # [id number]
--- NOTE | 2016-07-07 09:45 | Diagnostic Imaging Report ---
Clinical indication: Patient with left flank pain. Exam: Limited renal ultrasound with focus on the left kidney. Comparison: CT scan of the abdomen and pelvis performed with IV contrast dated 06/25/2016. Findings: Again seen mild left hydronephrosis. Otherwise left kidney has normal cortical thickness, echogenicity, size, and shape. The right kidney measures 13.1 cm in craniocaudal dimension. The bladder is predominantly decompressed and unable to be appropriately evaluated. Single image of right kidney shows no significant abnormality as visualized. Impression: 1: Again seen mild left hydronephrosis. Patient was noted to have a stone in the distal left ureter on the comparison CT scan. 2: Bladder is decompressed and cannot be appropriately evaluated on this exam. This case was discussed with Dr. Derek Cabrera via the telephone on 07/07/2016 at 0930 hrs. Dictated by: Dictated on workstation # [id number]
[2016-07-07] MEDS ORDERED: cefTRIAXone INJECTION 1,000 MG in NS (IVPB) 50 ML IV ONE (10:00)
[2016-07-07] MEDS ORDERED: CEPH500T PO (11:08)
[2016-07-07 11:21] VITALS: BP 119/66
== END 2016-07-07 11:21 | disposition home or self-care (01) ==
LOC: EDUNIT# 07:31 → ER 07:34
DX: N20.1 Calculus of ureter (principal); N83.202 Unspecified ovarian cyst, left side; D25.9 Leiomyoma of uterus, unspecified
CPT/HCPCS: 36415; 74000; 76775; 76830; 80053; 81000; 85025; 87088; 96361; 96365; 96375

== ENCOUNTER → 2016-07-08 | Outpatient (CLI) | payer OTHER ==
[~2016-07-08] MED LIST changes: +CEPH500T PO; +HYDR-3874 PO; +NITR-65 PO; +TAMS0.4C98 PO
--- OUTSIDE RECORDS SUMMARY | 2016-07-08 09:07 | XMS REPORT | Continuity of Care Document ---
Author Author [facility] Organization [facility] Address Unknown Phone Unavailable Care Team Providers Care Car Body Designer Name Role Phone ROYERSCOTRACHID DO PCP Insurance Providers Payer Name Policy Number Subscriber Name Relationship [employer] [id number] Madelyn Lechuga Self / Same As Patient Advance Directives Directive Response Recorded Date/Time Advance Directives No 07/07/16 7:43am Resuscitation Status Full Code 07/07/16 7:43am Chief Complaint and Reason for Visit Chief Complaint Abdominal/GI Problems Reason for Visit [id number] Left sided abdominal pain [id number] Problems Active Problems Medical Problem Onset Date [...] Day as needed for Pain 10 06/25/16 Cephalexin 500 Mg 500 Mg Oral Twice A Day 20 07/07/16 Past Home Medications Medication Directions Ordered Status Oxycodone Hcl/Acetaminophen 1 Each Tablet, 1 Each Oral Every 4HRS 07/27/10 Discontinued Omeprazole 20 Mg Tablet.dr, 20 Mg Oral Twice A Day 07/27/10 Discontinued Famotidine (Pepcid) 20 Mg Tablet, 1 Each Oral Twice A Day 07/27/10 Discontinued Social History Social History Problem Response Recorded Date/Time Alcohol Use Occasionally Uses 07/07/2016 7:43am Recreational Drug Use No 07/07/2016 7:43am Recent Foreign Travel No 07/07/2016 7:39am Recent Infectious Disease Exposure No 07/07/2016 7:39am Smoking Status Former Smoker 07/07/2016 7:43am Type Used Cigarettes 07/07/2016 7:43am Recent Hopitalizations No 07/07/2016 7:43am Query Response Start Date Stop Date Smoking Status Former Smoker Hospital Discharge Instructions No hospital discharge instructions. Plan of Care Discharge Date 07/07/16 11:21am Disposition 01 HOME, SELF-CARE Condition at Discharge Improved Instructions/Education Provided Kidney Stones in Adults Urinary Tract Infection, Adult (DC) Acute Abdomen (Belly Pain), Adult (DC) Ovarian Cyst (DC) Prescriptions See Medication Section Referrals SPENCER LANDAVERDE JACQUELINE S DO - Primary Care Physician RACHID DIAL DO - Primary Care Physician TORI VALDERRAMA MD - Additional Instructions/Education All discharge instructions reviewed with patient and/or family. Voiced understanding. Take medications as directed. Follow-up with Dr. Landaverde's office today after discharge from here for getting set up for ultrasound tomorrow. Follow-up with your doctor next week. Keep appointment and outpatient requirements for the procedure that you're due to get with Dr. Valderrama next week. Return for worse pain, fever, vomiting, weakness, breathing problems or other concerns as needed. Functional Status No functional status results. Allergies, Adverse Reactions, Alerts No known allergies. Immunizations No immunization records. Vital Signs Acute Vital Signs Vital Response Date/Time Temperature (Fahrenheit) 96.6 degrees F (97.6 - 99.5) 07/07/2016 7:39am Temperature (Calculated Celsius) 35.92438 degrees C (36.4 - 37.5) 07/07/2016 7:39am Temperature Source Temporal 07/07/2016 7:39am Pulse Rate (adult) 77 bpm (60 - 90) 07/07/2016 7:39am Respiratory Rate 22 bpm (12 - 24) 07/07/2016 7:39am O2 Sat by Pulse Oximetry 97 % (88 - 100) 07/07/2016 7:39am Blood Pressure 140/85 mm Hg 07/07/2016 7:39am Blood Pressure Mean 103 mm Hg 07/07/2016 7:39am Pain Numeric Pain Scale 5-Moderate Pain 07/07/2016 8:55am Pain Numeric Pain Scale 5-Moderate Pain 07/07/2016 8:55am Height (Feet) 5 feet 07/07/2016 7:39am Height (Inches) 5 inches 07/07/2016 7:39am Height (Calculated Centimeters) 165.691607 cm 07/07/2016 7:39am Weight (Pounds) 250 pounds 07/07/2016 7:39am Weight (Calculated Grams) 217974.094 gm 07/07/2016 7:39am Weight (Calculated Kilograms) 113.413439 kilograms 07/07/2016 7:39am Capillary Refill Capillary Refill Less Than 3 Seconds 07/07/2016 7:39am Height 5 ft 5 in Weight 250 lb Body Mass Index 41.6 kg/m^2 Results Laboratory Results Test Name Result Units Flags Reference Collection Date/Time Result Date/ Time Comments White Blood Count 15.0 10^3/uL H 4.3-11.0 06/25/2016 1:07am 06/25/2016 1: 22am Red Blood Count 4.55 10^6/uL 4.35-5.85 06/25/2016 1:07am 06/25/2016 1: 22am Hemoglobin 12.7 G/DL 11.5-16.0 06/25/2016 1:0706/25/2016 1:22am Hematocrit 37 % 35-52 06/25/2016 1:07am 06/25/2016 1:22am Mean Corpuscular Volume 82 FL 80-99 06/25/2016 1:07am 06/25/2016 1: 22am Mean Corpuscular Hemoglobin 28 PG 25-34 06/25/2016 1:07am 06/25/2016 1: 22am Mean Corpuscular Hemoglobin Concent 34 G/DL 32-36 06/25/2016 1:07am 1:22am Red Cell Distribution Width 14.4 % 10.0-14.5 06/25/2016 1:2016 1:22am Platelet Count 381 10^3/uL 130-400 06/25/2016 1:06/25/2016 1:22am Mean Platelet Volume 9.5 FL 7.4-10.4 06/25/2016 1:0706/25/2016 1: 22am Neutrophils (%) (Auto) 76 % H 42-75 06/25/2016 1:06/25/2016 1:22am Lymphocytes (%) (Auto) 16 % 12-44 06/25/2016 1:06/25/2016 1:22am Monocytes (%) (Auto) 7 % 0-12 06/25/2016 1:06/25/2016 1:22am Eosinophils (%) (Auto) 1 % 0-10 06/25/2016 1:0706/25/2016 1:22am Basophils (%) (Auto) 0 % 0-10 06/25/2016 1:06/25/2016 1:22am Neutrophils # (Auto) 11.3 X 10^3 H 1.8-7.8 06/25/2016 1:0706/25/2016 1 :22am Lymphocytes # (Auto) 2.5 X 10^3 1.0-4.0 06/25/2016 1:06/25/2016 1: 22am Monocytes # (Auto) 1.0 X 10^3 0.0-1.0 06/25/2016 1:06/25/2016 1: 22am Eosinophils # (Auto) 0.2 10^3/uL 0.0-0.3 06/25/2016 1:07am 06/25/2016 1 :22am Basophils # (Auto) 0.1 10^3/uL 0.0-0.1 06/25/2016 1:06/25/2016 1: 22am Neutrophils % (Manual) 70 % 06/25/2016 1:06/25/2016 1:36am Band Neutrophils 0 % 06/25/2016 1:06/25/2016 1:36am Lymphocytes % (Manual) 25 % 06/25/2016 1:06/25/2016 1:36am Monocytes % (Manual) 4 % 06/25/2016 1:0706/25/2016 1:36am Eosinophils % (Manual) 1 % 06/25/2016 1:07am 06/25/2016 1:36am Basophils % (Manual) 0 % 06/25/2016 1:07am 06/25/2016 1:36am Blood Morphology Comment NORMAL 06/25/2016 1:07am 06/25/2016 1: 36am Urine Color OTHER * 06/25/2016 12:06/25/2016 12:50am SPECIMEN IS BLUE/TEAL IN COLOR WHICH MAY CAUSE COLOR INTERFERENCE WITH DIPSTICK ANALYSIS. Urine Clarity CLEAR 06/25/2016 12:25am 06/25/2016 12:50am Urine pH 6.5 5-9 06/25/2016 12:am 06/25/2016 12:50am Urine Specific [place] 1.025 * 1.016-1.022 06/25/2016 12:25am 2016 12:50am [...] 12:50am Urine Crystals PRESENT /LPF * 06/25/2016 12:2506/25/2016 12:50am Urine Calcium Oxalate Crystals MODERATE /LPF * 06/25/2016 12:25am 06/25 12:50am Urine Casts NONE /LPF 06/25/2016 12:25am 06/25/2016 12:50am Urine Mucus NEGATIVE /LPF 06/25/2016 12:2506/25/2016 12:50am Urine Culture Indicated YES 06/25/2016 12:06/25/2016 12:50am Sodium Level 138 MMOL/L 135-145 06/25/2016 1:06/25/2016 1:36am Potassium Level 3.8 MMOL/L 3.6-5.0 06/25/2016 1:06/25/2016 1:36am Chloride Level 104 MMOL/L 98-107 06/25/2016 1:06/25/2016 1:36am Carbon Dioxide Level 21 MMOL/L 21-32 06/25/2016 1:06/25/2016 1: 36am Anion Gap 13 MMOL/L 5-14 06/25/2016 1:06/25/2016 1:36am Blood Urea Nitrogen 12 MG/DL 7-18 06/25/2016 1:06/25/2016 1:36am Creatinine 1.12 MG/DL 0.60-1.30 06/25/2016 1:06/25/2016 1:36am BUN/Creatinine Ratio 11 06/25/2016 1:06/25/2016 1:36am Estimat Glomerular Filtration Rate 53 06/25/2016 1:06/25/2016 1:36am GFR INTERPRETIVE DATA UNITS FOR ESTIMATED GFR (eGFR): mL/min/1.73 M2 REFERENCE RANGE FOR ESTIMATED GFR (eGFR) eGFR NORMAL eGFR >60 MODERATELY DECREASED eGFR 30-59 SEVERLY DECREASED eGFR 15-29 KIDNEY FAILURE <15 (OR DIALYSIS) Glucose Level 109 MG/DL H 70-105 06/25/2016 1:0706/25/2016 1:36am Calcium Level 9.1 MG/DL 8.5-10.1 06/25/2016 1:0706/25/2016 1:36am Total Bilirubin 0.3 MG/DL 0.1-1.0 06/25/2016 1:0706/25/2016 1:36am Alkaline Phosphatase 76 U/L 40-136 06/25/2016 1:07am 06/25/2016 1:36am Aspartate Amino Transf (AST/SGOT) 17 U/L 5-34 06/25/2016 1:072016 1:36am Alanine Aminotransferase (ALT/SGPT) 22 U/L 0-55 06/25/2016 1:0706/25 1:36am Total Protein 7.3 G/DL 6.4-8.2 06/25/2016 1:0706/25/2016 1:36am Albumin 4.0 G/DL 3.2-4.5 06/25/2016 1:07am 06/25/2016 1:36am Lipase 14 U/L 8-78 06/25/2016 1:0706/25/2016 1:36am C-Reactive Protein High Sensitivity 4.26 MG/DL H 0.00-0.50 06/25/2016 1: 07am 06/25/2016 1:36am Pending Laboratory Results Test Name Collection Date/Time Procedures No known history of procedures. Encounters Encounter Location Arrival/Admit Date Discharge/Depart Date Attending Provider Departed Emergency Room [facility] 07/07/16 7:34am 07/07 11:21am SHERYL HOWARD MD Registered Clinic [facility] 07/07/16 5:37am TORI VALDERRAMA MD Departed Emergency Room [facility] 06/25/16 12:17am 3:07am LOU BRAVO MD Recent Diagnosis
--- NOTE | 2016-07-08 10:27 | Diagnostic Imaging Report ---
INDICATION: Severe pelvic pain, evaluate for ovarian torsion. COMPARISON: 07/07/2016. DISCUSSION: Transabdominal and transvaginal sonographic evaluation of the pelvis was performed. The uterus is normal in echotexture and size measuring 8.5 x 4.7 x 4.6 cm. 1.7 cm uterine fibroid appear stable. Normal endometrial thickness measuring 0.9 cm. The left ovary is enlarged measuring 3.9 x 4.3 x 3.7 cm. Left ovary contains a solid-appearing homogeneous mass, which measures 3.6 x 3.0 x 3.9 cm. Overall appearance of the left ovary is stable from yesterday's exam. There is color Doppler and spectral blood flow within the surrounding ovarian parenchyma within the left ovary. Underlying etiology of the mass is indeterminate though diagnostic considerations would include an endometrioma, hemorrhagic follicle, or solid ovarian mass, not excluding malignancy. Recommend clinical correlation and either minimum six-week sonographic followup. Otherwise for more definitive evaluation, recommend pelvic MRI and/or surgical consultation. The right ovary measures 2.8 x 3.4 x 1.9 cm. The right ovary shows normal color and spectral Doppler blood flow. IMPRESSION: 1. There is no evidence of ovarian torsion on today's exam. 2. 3.9 cm left ovarian mass is indeterminate. See above discussion and recommendations. 3. Small uterine fibroid, stable. Dictated by: Dictated on workstation # [id number]
== END ==
LOC: RAD 09:01
PROVIDERS: ATTEND Obstetrics & Gynecology
DX: N83.53 Torsion of ovary, ovarian pedicle and fallopian tube (principal); D25.9 Leiomyoma of uterus, unspecified
CPT/HCPCS: 76830; 76856

== ENCOUNTER 2016-07-12 06:25 | Day surgery (SDC) | payer OTHER ==
[~2016-07-12] VITALS: Ht 165.1 cm; Wt 132.0 kg
[~2016-07-12 06:25] MED LIST changes: -HYDR-3874 PO; -NITR-65 PO; -TAMS0.4C98 PO
[2016-07-12 06:30] VITALS: BP 122/75
--- OUTSIDE RECORDS SUMMARY | 2016-07-12 06:37 | XMS REPORT | Continuity of Care Document ---
Author Author [facility] Organization [facility] Address Unknown Phone Unavailable Care Team Providers Care Detention Worker Name Role Phone ROYERSCOTRACHID DO PCP Insurance Providers Payer Name Policy Number Subscriber Name Relationship [employer] [id number] Madelyn Lechuga Self / Same As Patient Advance Directives Directive Response Recorded Date/Time Advance Directives No 07/07/16 7:43am Resuscitation Status Full Code 07/07/16 7:43am Chief Complaint and Reason for Visit Chief Complaint Abdominal/GI Problems Reason for Visit [id number] Left sided abdominal pain [id number] Problems Active Problems Medical Problem Onset Date [...] - 99.5) 07/07/2016 7:39am Temperature (Calculated Celsius) 35.82830 degrees C (36.4 - 37.5) 07/07/2016 7:39am [...] 5 inches 07/07/2016 7:39am Height (Calculated Centimeters) 165.402212 cm 07/07/2016 7:39am Weight (Pounds) 250 pounds 07/07/2016 7:39am Weight (Calculated Grams) 527676.094 gm 07/07/2016 7:39am Weight (Calculated Kilograms) 113.890108 kilograms 07/07/2016 7:39am Capillary Refill Capillary Refill [...] 5-9 06/25/2016 12:am 06/25/2016 12:50am Urine Specific [place] 1.025 * 1.016-1.022 06/25/2016 12:25am 2016 12:50am [...] Date Attending Provider Departed Emergency Room [facility] 07/07/16 7:34am 07/07 11:21am SHERYL HOWARD MD Registered Clinic [facility] 07/07/16 5:37am TORI VALDERRAMA MD Departed Emergency Room [facility] 06/25/16 12:17am 3:07am LOU BRAVO MD Recent Diagnosis
--- OUTSIDE RECORDS SUMMARY | 2016-07-12 06:37 | XMS REPORT | Continuity of Care Document ---
Author Author [facility] Organization [facility] Address Unknown Phone Unavailable Care Team Providers Care Custodial Aide Name Role Phone ROYERSCOTRACHID DO PCP Insurance Providers Payer Name Policy Number Subscriber Name Relationship [employer] [id number] Madelyn Lechuga Self / Same As Patient Advance Directives Directive Response Recorded Date/Time Advance Directives No 07/07/16 7:43am Resuscitation Status Full Code 07/07/16 7:43am Chief Complaint and Reason for Visit Chief Complaint Abdominal/GI Problems Reason for Visit [id number] Left sided abdominal pain [id number] Problems Active Problems Medical Problem Onset Date [...] - 99.5) 07/07/2016 7:39am Temperature (Calculated Celsius) 35.02081 degrees C (36.4 - 37.5) 07/07/2016 7:39am [...] 5 inches 07/07/2016 7:39am Height (Calculated Centimeters) 165.245759 cm 07/07/2016 7:39am Weight (Pounds) 250 pounds 07/07/2016 7:39am Weight (Calculated Grams) 047915.094 gm 07/07/2016 7:39am Weight (Calculated Kilograms) 113.068045 kilograms 07/07/2016 7:39am Capillary Refill Capillary Refill [...] 5-9 06/25/2016 12:am 06/25/2016 12:50am Urine Specific [place] 1.025 * 1.016-1.022 06/25/2016 12:25am 2016 12:50am [...]
[2016-07-12] MEDS ORDERED: LACTATED RINGERS 1,000 ML IV PRN (06:56)
[2016-07-12] MEDS ORDERED: cefTRIAXone 1 GM/NS 50 ML IVPB IV ONE ×2 (07:00)
--- NOTE | 2016-07-12 07:17 | Diagnostic Imaging Report ---
INDICATION: Urinary tract calculi Single view of the abdomen is obtained with comparison made to study of 07/07/2016. Similar to the previous study, there are two calcifications projected over the expected location of the distal left ureter without change in position compared to previous exam. There are two additional tiny calcifications seen to the right of midline which are indeterminate between ureteric calculi or phleboliths. Overall, there has been no significant change when compared to the previous exam. IMPRESSION: Minimal calcifications in the pelvis bilaterally are indeterminate between ureteric calculi or phleboliths but have not significantly changed compared to previous exam. Dictated by: Dictated on workstation # [id number]
[2016-07-12] MEDS ORDERED: proPOfol 200 MG/20 ML (DIPRIVAN) VIAL IV ONE ×2 (07:18→08:56)
[2016-07-12] MEDS ORDERED: MIDAZOLAM 2 MG/2 ML (VERSED) VIAL ONE (07:18)
[2016-07-12] MEDS ORDERED: fentaNYL INJECTION 100 MCG/2 ML AMP ONE ×2 (07:19→09:03)
--- NOTE | 2016-07-12 07:19 | Progress Note-Pre Operative ---
Pre-Operative Progress Note H&P Reviewed The H&P was reviewed, patient examined and no changes noted. Date H&P Reviewed: Jul 12, 2016 Time H&P Reviewed: 07:18 Pre-Operative Diagnosis: LT DISTAL URETERAL STONE TORI CHAUDHRY MD Jul 12, 2016 7:18 am
--- NOTE | 2016-07-12 07:53 | Progress Note-Post Operative ---
Post-Operative Progess Note Pre-Operative Diagnosis LT DISTAL URETERAL STONE Post-Operative Diagnosis SAME Post-Op Procedure Note Date of Procedure: Jul 12, 2016 Name of Procedure: CYSTO, LT URETEROSCOPY WITH STONE BASKET, LT RETROGRADE UROGRAM AND JJ STENT Anesthesia Type GENERAL Specimen(s) collected STONE FOR ANALYSIS TORI CHAUDHRY MD Jul 12, 2016 7:53 am
--- NOTE | 2016-07-12 07:54 | Discharge Inst-Urology ---
Discharge Inst-Urology Discharge Medications New, Converted, or Re-newed RX: RX on Chart Patient Instructions/Follow Up Plan Office monday 11am for cysto and DC stent Stone for analysis post seen by patient, parents has it Increase oral fluids for 48 hours and then as needed. Diet and Activity as tolerated. If questions or concerns contact your physician Or seek help at emergency department. TORI CHAUDHRY MD Jul 12, 2016 7:54 am
[2016-07-12] MEDS ORDERED: LACTATED RINGERS 2,000 ML IV ONE (08:56)
[2016-07-12] MEDS ORDERED: SEVOFLURANE (ULTANE) 15 ML INHAL SOLN ONE (08:56)
[2016-07-12] MEDS ORDERED: ONDANSETRON 4 MG/2 ML (SDV) Z0FRAN ONE (08:56)
[2016-07-12] MEDS ORDERED: ROCURONIUM 50 MG/5 ML (ZEMURON) VIAL IV ONE (08:56)
[2016-07-12] MEDS ORDERED: NEOSTIGMINE (BLOXIVERZ ) 1 MG/1ML 10 ML VIAL ONE (09:08)
[2016-07-12] MEDS ORDERED: GLYCOPYRROLATE 0.2 MG/ML (ROBINUL) 2 ML VIAL ONE (09:08)
[2016-07-12] MEDS ORDERED: FUROSEMIDE 40 MG/4 ML INJ (LASIX) ONE (09:10)
[2016-07-12] MEDS ORDERED: KETOROLAC 30 MG/ML VIAL ONE (09:10)
[2016-07-12] MEDS: morphine INJ 10 MG/ML 1ML (SYR OR VIAL) IVP PRN ×2 (09:28→09:32)
[2016-07-12] MEDS ORDERED: ONDANSETRON 4 MG/2 ML (SDV) Z0FRAN IVP PRN (09:30)
[2016-07-12] MEDS ORDERED: PROMETHAZINE INJ 25 MG/ML (PHENERGAN) AMP IVP PRN (09:30)
[2016-07-12] MEDS ORDERED: MEPERIDINE (DEMEROL) INJ 50 MG/ML ONE (09:37)
[2016-07-12] MEDS: MEPERIDINE (DEMEROL) INJ 50 MG/ML IVP PRN ×2 (09:39→09:41)
[2016-07-12] MEDS ORDERED: PROMETHAZINE INJ 25 MG/ML (PHENERGAN) AMP ONE (09:44)
[2016-07-12 09:55] VITALS: BP 122/64
[2016-07-12] MEDS ORDERED: HYDROcodone/APAP 5 MG/325 MG (LORTAB) TAB PO PRN (10:30)
[2016-07-12] MEDS ORDERED: PHENAZOPYRIDINE 100 MG (PYRIDIUM) TABLET PO ONE (10:30)
[2016-07-12 10:50] VITALS: BP 111/60
[2016-07-12] MEDS ORDERED: TAMS0.4C98 PO (11:12)
[2016-07-12] MEDS ORDERED: NITR-65 PO (11:12)
[2016-07-12] MEDS ORDERED: HYDR-3874 PO (11:12)
[2016-07-12] MEDS ORDERED: PHEN-640 PO (11:12)
[2016-07-12 11:20] VITALS: BP 121/64
[2016-07-12 11:32] VITALS: BP 121/64
--- NOTE | 2016-07-13 13:07 | OPERATIVE REPORT ---
PROCEDURE PHYSICIAN: TORI CHAUDHRY DATE OF PROCEDURE: 07/12/2016 PREOPERATIVE DIAGNOSIS: Left distal ureteral stone. POSTOPERATIVE DIAGNOSIS: Left distal ureteral stone. OPERATION PERFORMED: 1. Cystoscopy. 2. Left ureteroscopy with stone basket. 3. Double J stent insertion. 4. Retrograde urogram:. SURGEON: Jannie ANESTHESIA: General. COMPLICATIONS: None. PROCEDURE: Under satisfactory general anesthesia, the patient in lithotomy position, the genitalia were prepped and draped in usual sterile fashion. Cystoscope was introduced under vision. The bladder was essentially normal except very sluggish efflux on the left ureteral orifice using the Foroblique lens, I dilated the left ureteral orifice, intramural portion to accommodate a 6.9-Montserratian semirigid ureteroscope. I could not get to the stone safely enough to break it up with lithoclast because of quite a bit of edema proximal to it and around it. I was able to pass a 3-Montserratian Bhatt basket, engaged the stone and extracted it completely. Before removing the stone, I injected retrograde urogram which showed the filling defect in the distal ureter. After removing the stone. I repeated the retrograde again and there was no more filling defect at all with excellent emptying of the ureter. Because of the long-standing stone and all the reaction in the ureter I elected to leave a stent for a couple or 3 days. I passed a 6-Montserratian 26 cm double J stent, guided fluoroscopically all the way to the left renal pelvis. The guidewire removed the stent was seen J-ing nicely proximally, fluoroscopically and distally endoscopically. The bladder was evacuated and cystoscope was removed. The patient tolerated the procedure and anesthesia well and was sent to recovery room in stable condition. Job ID: [id number] Dictated Date: 07/12/2016 09:52:29 Wire Bound Box Machine Helper Date: 07/13/2016 13:02:51 / [email or web address]
[2016-07-16 16:13] LABS: KIDNEY STONE WEIGHT 11 MG
[2016-07-16 16:14] LABS: KIDNEY STONE COMPOSITION SEE FOOTNOTE; KIDNEY STONE DESCRIPTION SEE FOOTNOTE; STONE NUMBER 1
== END 2016-07-12 11:32 | disposition home or self-care (01) ==
LOC: SDC 06:25
PROVIDERS: ATTEND Urology
DX: N20.1 Calculus of ureter (principal)
CPT/HCPCS: 74000; 84703; 88300

== ENCOUNTER 2016-07-22 10:44 | Outpatient (RCR) | payer OTHER ==
--- OUTSIDE RECORDS SUMMARY | 2016-07-20 12:08 | XMS REPORT | Continuity of Care Document ---
Author Author [facility] Organization [facility] Address Unknown Phone Unavailable Care Team Providers Care Hygiene Coordinator Name Role Phone RACHID DIAL DO PCP Insurance Providers Payer Name Policy Number Subscriber Name Relationship [employer] [id number] Madelyn Lechuga 20 Self / Same As Patient Advance Directives Directive Response Recorded Date/Time Advance Directives No 07/12/16 6:30am Resuscitation Status Full Code 07/12/16 6:30am Problems Active Problems Medical Problem Onset Date Status Left sided abdominal pain Unknown Acute Left ureteral stone Unknown Acute Ovarian cyst, left Unknown Acute Medications Current Home Medications Medication Dose Units Route Directions Days/Qty Instructions Start Date Tamsulosin Hcl 0.4 Mg 0.4 Mg Oral Daily 15 TAKE ONE CAPSULE DAILY BY MOUTH. 07/12/16 Nitrofurantoin Monohyd/M-Cryst 100 Mg 1 Tab Oral Twice A Day With Meals 14 TAKE ONE CAPSULE BY MOUTH TWICE A DAY WITH A MEAL. USE ALL OF THIS ANTIBIOTIC PRESCRIBED. 07/12/16 Phenazopyridine Hcl 200 Mg 1 Tab Oral Three Times A Day 15 MAY TAKE 200 MG BY MOUTH UP TO THREE TIMES A DAY NEEDED FOR BLADDER SPASM/PAIN. LAST DOSE GIVEN AT 10:46 AM 07/12/16. 07/12/16 Hydrocodone/Acetaminophen 1 Each 1-2 Each Oral Every 4HRS as needed for Pain 20 MAY TAKE ONE OR TWO TABLETS BY MOUTH EVERY 4 HRS NEEDED FOR PAIN. LAST DOSE, ONE TABLET, GIVEN AT 10:47 AM 07/12/16. 07/12/16 Past Home Medications Medication Directions Ordered Status Oxycodone Hcl/Acetaminophen 1 Each Tablet, 1 Each Oral Every 4HRS 07/27/10 Discontinued Omeprazole 20 Mg Tablet.dr, 20 Mg Oral Twice A Day 07/27/10 Discontinued Famotidine (Pepcid) 20 Mg Tablet, 1 Each Oral Twice A Day 07/27/10 Discontinued Ciprofloxacin Hcl 250 Mg Tablet, 1 Cap Oral Twice A Day 06/25/16 Discontinued [place]am/Me Blue/Ba/Salicy/Hyo 1 Each Tablet, 1 Each Oral As Directed Discontinued Oxycodone Hcl/Acetaminophen 1 Each Tablet, 1-2 Each Oral Every 6 Hours as needed for Pain 06/25/16 Discontinued Phenazopyridine Hcl 200 Mg Tablet, 1 Tab Oral Three Times A Day as needed for Pain 06/25/16 Discontinued Cephalexin 500 Mg Tablet, 500 Mg Oral Twice A Day 07/07/16 Discontinued Social History Social History Problem Response Recorded Date/Time Alcohol Use Rarely Uses 07/12/2016 6:30am Recreational Drug Use No 07/12/2016 6:30am Recent Foreign Travel No 07/12/2016 6:30am Recent Infectious Disease Exposure No 07/12/2016 6:30am Smoking Status Former Smoker 07/12/2016 6:30am Type Used Cigarettes 07/12/2016 11:54am Recent Hopitalizations No 07/12/2016 6:30am Query Response Start Date Stop Date Smoking Status Former Smoker Hospital Discharge Instructions Patient Instructions Physician Instructions New, Converted, or Re-newed RX: RX on Chart Plan Office monday 11am for cysto and DC stent Stone for analysis post seen by patient, parents has it Increase oral fluids for 48 hours and then as needed. Diet and Activity as tolerated. If questions or concerns contact your physician Or seek help at emergency department. Plan of Care Discharge Date 07/12/16 11:32am Instructions/Education Provided ANESTHESIA INSTRUCTIONS POSTOP Prescriptions See Medication Section Functional Status No functional status results. Allergies, Adverse Reactions, Alerts No known allergies. Immunizations No immunization records. Vital Signs Acute Vital Signs Vital Response Date/Time Temperature (Fahrenheit) 97.3 degrees F (97.6 - 99.5) 07/12/2016 11:32am Temperature (Calculated Celsius) 36.70281 degrees C (36.4 - 37.5) 07/12/2016 11:20am Temperature Source Temporal 07/12/2016 11:32am Pulse Rate (adult) 60 bpm (60 - 90) 07/12/2016 11:32am Respiratory Rate 18 bpm (12 - 24) 07/12/2016 11:32am O2 Sat by Pulse Oximetry 98 % (88 - 100) 07/12/2016 11:32am Blood Pressure 121/64 mm Hg 07/12/2016 11:32am Blood Pressure Mean 91 mm Hg 07/12/2016 6:30am Pain Numeric Pain Scale 2 07/12/2016 11:39am Pain Intensity 2 07/12/2016 11:20am Height (Feet) 5 feet 07/12/2016 6:30am Height (Inches) 5.00 inches 07/12/2016 6:30am Height (Calculated Centimeters) 165.572979 cm 07/12/2016 6:30am Weight (Pounds) 291 pounds 07/12/2016 6:30am Weight (Ounces) 0.0 oz 07/12/2016 6:30am Weight (Calculated Grams) 846673.38 gm 07/12/2016 6:30am Weight (Calculated Kilograms) 131.392005 kilograms 07/12/2016 6:30am Calculated BMI 48.4 07/12/2016 6:30am Capillary Refill Capillary Refill Less Than 3 Seconds 07/07/2016 7:39am Results Laboratory Results Test Name Result Units Flags Reference Collection Date/Time Result Date/ Time Comments White Blood Count 15.0 10^3/uL H 4.3-11.0 06/25/2016 1:07am 06/25/2016 1: 22am Red Blood Count 4.55 10^6/uL 4.35-5.85 06/25/2016 1:07am 06/25/2016 1: 22am Hemoglobin 12.7 G/DL 11.5-16.0 06/25/2016 1:07am 06/25/2016 1:22am Hematocrit 37 % 35-52 06/25/2016 1:07am 06/25/2016 1:22am Mean Corpuscular Volume 82 FL 80-99 06/25/2016 1:07am 06/25/2016 1: 22am Mean Corpuscular Hemoglobin 28 PG 25-34 06/25/2016 1:07am 06/25/2016 1: 22am Mean Corpuscular Hemoglobin Concent 34 G/DL 32-36 06/25/2016 1: 1:22am Red Cell Distribution Width 14.4 % 10.0-14.5 06/25/2016 1:2016 1:22am Platelet Count 381 10^3/uL 130-400 06/25/2016 1:06/25/2016 1:22am Mean Platelet Volume 9.5 FL 7.4-10.4 06/25/2016 1:06/25/2016 1: 22am Neutrophils (%) (Auto) 76 % H 42-75 06/25/2016 1:06/25/2016 1:22am Lymphocytes (%) (Auto) 16 % 12-44 06/25/2016 1:06/25/2016 1:22am Monocytes (%) (Auto) 7 % 0-12 06/25/2016 1:06/25/2016 1:22am Eosinophils (%) (Auto) 1 % 0-10 06/25/2016 1:06/25/2016 1:22am Basophils (%) (Auto) 0 % 0-10 06/25/2016 1:06/25/2016 1:22am Neutrophils # (Auto) 11.3 X 10^3 H 1.8-7.8 06/25/2016 1:06/25/2016 1 :22am Lymphocytes # (Auto) 2.5 X 10^3 1.0-4.0 06/25/2016 1:06/25/2016 1: 22am Monocytes # (Auto) 1.0 X 10^3 0.0-1.0 06/25/2016 1:06/25/2016 1: 22am Eosinophils # (Auto) 0.2 10^3/uL 0.0-0.3 06/25/2016 1:06/25/2016 1 :22am Basophils # (Auto) 0.1 10^3/uL 0.0-0.1 06/25/2016 1:06/25/2016 1: 22am Neutrophils % (Manual) 70 % 06/25/2016 1:06/25/2016 1:36am Band Neutrophils 0 % 06/25/2016 1:07am 06/25/2016 1:36am Lymphocytes % (Manual) 25 % 06/25/2016 1:07am 06/25/2016 1:36am Monocytes % (Manual) 4 % 06/25/2016 1:07am 06/25/2016 1:36am Eosinophils % (Manual) 1 % 06/25/2016 1:am 06/25/2016 1:36am Basophils % (Manual) 0 % 06/25/2016 1:am 06/25/2016 1:36am Blood Morphology Comment NORMAL 06/25/2016 1:am 06/25/2016 1: 36am Urine Color OTHER * 06/25/2016 12:am 06/25/2016 12:50am SPECIMEN IS BLUE/TEAL IN COLOR WHICH MAY CAUSE COLOR INTERFERENCE WITH DIPSTICK ANALYSIS. Urine Clarity CLEAR 06/25/2016 12:am 06/25/2016 12:50am Urine pH 6.5 5-9 06/25/2016 12:25am 06/25/2016 12:50am Urine Specific [place] 1.025 * 1.016-1.022 06/25/2016 12:25am 2016 12:50am Urine Protein 2+ * NEGATIVE 06/25/2016 12:25am 06/25/2016 12:50am Urine Glucose (UA) NEGATIVE NEGATIVE 06/25/2016 12:am 06/25/2016 12 :50am Urine RBC (Auto) 2+ [...] 06/25/2016 12:50am Urine Mucus NEGATIVE /LPF 06/25/2016 12:25am 06/25/2016 12:50am Urine Culture Indicated YES 06/25/2016 12:25am 06/25/2016 12:50am Sodium Level 138 MMOL/L 135-145 06/25/2016 1:07am 06/25/2016 1:36am Potassium Level 3.8 MMOL/L 3.6-5.0 06/25/2016 1:07am 06/25/2016 1:36am Chloride Level 104 MMOL/L 98-107 06/25/2016 1:07am 06/25/2016 1:36am Carbon Dioxide Level 21 MMOL/L 21-32 06/25/2016 1:07am 06/25/2016 1: 36am Anion Gap 13 MMOL/L 5-14 06/25/2016 1:07am 06/25/2016 1:36am Blood Urea Nitrogen 12 MG/DL 7-18 06/25/2016 1:07am 06/25/2016 1:36am Creatinine 1.12 MG/DL 0.60-1.30 06/25/2016 1:07am 06/25/2016 1:36am BUN/Creatinine Ratio 11 06/25/2016 1:0706/25/2016 1:36am Estimat Glomerular Filtration Rate 53 06/25/2016 1:0706/25/2016 1:36am GFR INTERPRETIVE DATA UNITS FOR ESTIMATED GFR (eGFR): mL/min/1.73 M2 REFERENCE RANGE FOR ESTIMATED GFR (eGFR) eGFR NORMAL eGFR >60 MODERATELY DECREASED eGFR 30-59 SEVERLY DECREASED eGFR 15-29 KIDNEY FAILURE <15 (OR DIALYSIS) Glucose Level 109 MG/DL H 70-105 06/25/2016 1:07am 06/25/2016 1:36am Calcium Level 9.1 MG/DL 8.5-10.1 06/25/2016 1:07am 06/25/2016 1:36am Total Bilirubin 0.3 MG/DL 0.1-1.0 06/25/2016 1:07am 06/25/2016 1:36am Alkaline Phosphatase 76 U/L 40-136 06/25/2016 1:07am 06/25/2016 1:36am Aspartate Amino Transf (AST/SGOT) 17 U/L 5-34 06/25/2016 1:07am 2016 1:36am Alanine Aminotransferase (ALT/SGPT) 22 U/L 0-55 06/25/2016 1:07am 06/25 1:36am Total Protein 7.3 G/DL 6.4-8.2 06/25/2016 1:07am 06/25/2016 1:36am Albumin 4.0 G/DL 3.2-4.5 06/25/2016 1:07am 06/25/2016 1:36am Lipase 14 U/L 8-78 06/25/2016 1:07am 06/25/2016 1:36am C-Reactive Protein High Sensitivity 4.26 MG/DL H 0.00-0.50 06/25/2016 1: 07am 06/25/2016 1:36am Pending Laboratory Results Test Name Collection Date/Time Pending Microbiology Results Procedure Source Collection Date/Time Procedures Procedure Status Date Provider(s) Cystoscopy Completed 07/12/16 TORI CHAUDHRY MD Encounters Encounter Location Arrival/Admit Date Discharge/Depart Date Attending Provider Departed [facility] 07/12/16 6:25am 11:32am TORI CHAUDHRY MD Registered Clinic [facility] 07/08/16 9:01am SPENCER NAVARRO DO Departed Emergency Room [facility] 07/07/16 7:34am 07/07 11:21am SHERYL HOWARD MD Departed Clinic [facility] 07/07/16 5:37am 07/07/16 12: 08pm TORI CHAUDHRY MD Departed Emergency Room [facility] 06/25/16 12:17am 3:07am LOU BRAVO MD
[~2016-07-22 10:44] MED LIST changes: +HYDR-3874 PO; +NITR-65 PO; +TAMS0.4C98 PO
[2016-07-27 12:36] LABS: STONE RISK AMMONIUM 32 mEq/24hr (14-62); STONE RISK BRUSHITE 0.92 (< 2.00); STONE RISK CA OXALATE 3.85 (< 2.00); STONE RISK CALCIUM 147 mg/day (< 250); STONE RISK CITRATE 327 mg/day (> 320); STONE RISK CREATININE 1382 mg/day (600-1800); STONE RISK MAGNESIUM 72 mg/day (> 60); STONE RISK OXALATE 30 mg/day (< 45); STONE RISK PH 5.3 (5.5-7.0); STONE RISK PHOSPHOROUS 748 mg/day (< 1100); STONE RISK POTASSIUM 34 mEq/24hr (19-135); STONE RISK SODIUM 86 mEq/24hr (< 200); STONE RISK SODIUM URATES 0.69 (< 2.00); STONE RISK STRUVITE 0.14 (< 75.00); STONE RISK SULFITE 13 mmol/day (< 30); STONE RISK TOTAL VOLUME 0.73 L/day (> 2.00); STONE RISK URIC ACID 112 mg/day (< 700); STONE RISK URIC ACID SAT 1.79 (< 2.00)
== END 2016-10-18 | disposition home or self-care (01) ==
LOC: LAB 10:44
PROVIDERS: ATTEND Urology
DX: N20.9 Urinary calculus, unspecified (principal)
CPT/HCPCS: 36415; 82140; 82340; 82507; 82570; 83735; 83945; 83986; 84105; 84133; 84300; 84392; 84560

== ENCOUNTER 2017-07-06 11:30 | Observation (INO) | payer BC, OTHER ==
[~2017-07-06] VITALS: Ht 165.1 cm; Wt 132.0 kg
[2017-07-06 12:00] VITALS: BP 125/65
[2017-07-06] MEDS ORDERED: RT-ALBUTEROL/IPRATROPIUM 3 ML (DUONEB) VIAL ONE (12:08)
[2017-07-06] MEDS: RT-ALBUTEROL/IPRATROPIUM 3 ML (DUONEB) VIAL INH SCH ×3 (12:29→23:09)
[2017-07-06] MEDS ORDERED: PATIENT MAY USE OWN MEDS, ALL PO SCH (12:30)
[2017-07-06] MEDS: NS IV 1000 ML 1,000 ML IV SCH ×2 (12:42→20:48)
[2017-07-06] MEDS: methylPREDNISolone 125 MG (Solu-MEDROL) VIAL IV SCH ×2 (12:42→17:57)
[2017-07-06] MEDS: ENOXAPARIN 40 MG/0.4 ML (LOVENOX) SYR SC SCH (13:08)
[2017-07-06 13:20] LABS: BASOPHILS % (AUTO) 0 % (0-10); EOSINOPHILS # (AUTO) 0.1 10^3/uL (0.0-0.3); EOSINOPHILS % (AUTO) 1 % (0-10); HEMATOCRIT 39 % (35-52); HEMOGLOBIN 13.1 G/DL (11.5-16.0); LYMPHOCYTES # (AUTO) 1.6 X 10^3 (1.0-4.0); LYMPHOCYTES % (AUTO) 25 % (12-44); MEAN CORPUSCULAR HEMOGLOBIN 28 PG (25-34); MEAN CORPUSCULAR HGB CONC 34 G/DL (32-36); MEAN CORPUSCULAR VOLUME 82 FL (80-99); MEAN PLATELET VOLUME 9.2 FL (7.4-10.4); MONOCYTES # (AUTO) 0.8 X 10^3 (0.0-1.0); MONOCYTES % (AUTO) 13 % (0-12); NEUTROPHILS # (AUTO) 3.8 X 10^3 (1.8-7.8); NEUTROPHILS % (AUTO) 61 % (42-75); PLATELET COUNT 235 10^3/uL (130-400); RED BLOOD COUNT 4.72 10^6/uL (4.35-5.85); RED CELL DISTRIBUTION WIDTH 14.8 % (10.0-14.5); WHITE BLOOD COUNT 6.3 10^3/uL (4.3-11.0)
[2017-07-06 13:39] LABS: ALANINE AMINOTRANSFERASE 23 U/L (0-55); ALBUMIN 3.7 GM/DL (3.2-4.5); ALKALINE PHOSPHATASE 65 U/L (40-136); BILIRUBIN,TOTAL 0.2 MG/DL (0.1-1.0); BUN/CREATININE RATIO 9; CALCIUM 8.9 MG/DL (8.5-10.1); CARBON DIOXIDE 23 MMOL/L (21-32); CHLORIDE 104 MMOL/L (98-107); CREATININE SERUM 0.87 MG/DL (0.60-1.30); GFR ESTIMATED > 60; GLUCOSE 116 MG/DL (70-105); POTASSIUM 3.4 MMOL/L (3.6-5.0); SODIUM 136 MMOL/L (135-145); TOTAL PROTEIN 7.4 GM/DL (6.4-8.2)
[2017-07-06 13:42] LABS: ERYTHROCYTE SEDIMENTATION RATE 45 MM/HR (0-20)
[2017-07-06] MEDS ORDERED: INFLUENZA TRIvalent 2017-2018 0.5 ML/45 MCG SYR IM ONE (14:00)
--- NOTE | 2017-07-06 14:03 | Diagnostic Imaging Report ---
INDICATION: Respiratory distress, lower respiratory infection. EXAM: PA and lateral chest. FINDINGS: The heart size and pulmonary vascularity are normal. The lungs are clear. There are no effusions or pneumothoraces. IMPRESSION: Negative chest. Dictated by: Dictated on workstation # [id number]
[2017-07-06 16:00] VITALS: BP 116/82
--- NOTE | 2017-07-06 18:31 | History & Physicial ---
History of Present Illness History of Present Illness Reason for visit/HPI This is a 46 year old female who presented to my office to see the nurse practitioner with complaint of cough, shortness of air and wheezing for 3 to 5 days. She was very dyspneic on exam but her oxygen saturation was 97% on room air and she had no wheezing on physical exam. She was also afebrile. She had labored breathing so she was given a breathing treatment which did not help her symptoms. It was decided to admit her for direct admission for IV solumedrol, routine nebulizer treatments and further evaluation. Date of Admission Jul 06, 2017 at 11:55 am Date Seen by Provider: Jul 06, 2017 Time Seen by Provider: 11:30 I consulted on this patient on 07/06/17 18:26 Attending Physician Eulalia Love DO Admitting Physician Eulalia Love DO Consult Allergies and Home Medications Allergies Coded Allergies: No Known Drug Allergies (Unverified , 07/27/10) Home Medications No Active Prescriptions or Reported Meds Past Hnasiwu-Wjzqfh-Pohvhp Hx Patient Social History Alcohol Use: Rarely Uses Number of Drinks Today: 0 Alcohol Beverage of Choice: Wine Recreational Drug Use: No Smoking Status: Former Smoker Former Smoker, Quit: Jul 06, 1987 Type Used: Cigarettes Physical Abuse Screen: No Sexual Abuse: No Recent Foreign Travel: No Contact w/other who traveled: No Recent Hopitalizations: No Recent Infectious Disease Expo: No Immunizations Up To Date Tetanus Booster (TDap): Unknown Seasonal Allergies Seasonal Allergies: Yes (sometimes) Surgeries Yes (BACK SURGERY) Gallbladder, Orthopedic Respiratory No Cardiovascular No Neurological No Reproductive System Hx Reproductive Disorders: No Genitourinary Yes Kidney Stones Gastrointestinal No Musculoskeletal No Endocrine History of Endocrine Disorders: Yes (obesity) Cancer No Psychosocial History of Psychiatric Problem: No Integumentary History of Skin or Integumenta: No Blood Transfusions History of Blood Disorders: No Family Medical History Significant Family History: COPD, Hypertension Family Hx: Cardiovascular disease 19 FATHER Respiratory disorder 19 MOTHER (COPD) Constitutional: weakness EENTM: hoarseness, throat pain, throat swelling Respiratory: cough, dyspnea on exertion, short of breath, stridor, wheezing Cardiovascular: No no symptoms reported, No see HPI, No chest pain, No edema, No Hx of Intervention, No palpitations, No syncope, No vascular heart diseas, No other Gastrointestinal: No RUQ, No LUQ, No RLQ, No LLQ, No no symptoms reported, No see HPI, No abdominal pain, No constipation, No diarrhea, No dysphagia, No hematemesis, No heartburn, No jaundice, No loss of appetite, No melena, No nausea, No vomiting, No other Genitourinary: No no symptoms reported, No see HPI, No decreased output, No discharge, No dysuria, No frequency, No hematuria, No hesitancy, No incontinence , No nocturia, No pain, No other Musculoskeletal: No no symptoms reported, No see HPI, No back pain, No gout, No joint pain, No joint swelling, No muscle pain, No muscle stiffness, No muscle cramps, No muscle twitching, No muscle weakness, No neck pain, No other Skin: No no symptoms reported, No see HPI, No change in color, No change in hair/nails, No dryness, No hx of skin cancer, No lesions, No lumps, No pruritus , No rash, No other Psychiatric/Neurological: Anxiety, Weakness Physical Exam Vital Signs Vital Signs - First Documented Capillary Refill : General Appearance: Severe Distress (labored breathing, red faced, anxious and tearful) HEENT: Pharyngeal Erythema Neck: Supple Respiratory: Lungs Clear Cardiovascular: Regular Rate, Rhythm Gastrointestinal: Normal Bowel Sounds, Non Tender, Soft Rectal: Deferred Back: No CVA Tenderness Extremity: Non Tender, No Calf Tenderness, No Pedal Edema Neurologic/Psychiatric: Alert, Oriented x3 Skin: Warm/Dry Comments Laboratory Tests 07/06/17 13:09: White Blood Count 6.3, Red Blood Count 4.72, Hemoglobin 13.1, Hematocrit 39, Mean Corpuscular Volume 82, Mean Corpuscular Hemoglobin 28, Mean Corpuscular Hemoglobin Concent 34, Red Cell Distribution Width 14.8H, Platelet Count 235, Mean Platelet Volume 9.2, Neutrophils (%) (Auto) 61, Lymphocytes (%) (Auto) 25, Monocytes (%) (Auto) 13H, Eosinophils (%) (Auto) 1, Basophils (%) (Auto) 0, Neutrophils # (Auto) 3.8, Lymphocytes # (Auto) 1.6, Monocytes # (Auto) 0.8, Eosinophils # (Auto) 0.1, Basophils # (Auto) 0.0, Erythrocyte Sedimentation Rate 45H, D-Dimer 0.41, Sodium Level 136, Potassium Level 3.4L, Chloride Level 104, Carbon Dioxide Level 23, Anion Gap 9, Blood Urea Nitrogen 8, Creatinine 0.87, Estimat Glomerular Filtration Rate > 60, BUN/Creatinine Ratio 9, Glucose Level 116H, Calcium Level 8.9, Total Bilirubin 0.2, Aspartate Amino Transf (AST/ SGOT) 20, Alanine Aminotransferase (ALT/SGPT) 23, Alkaline Phosphatase 65, Total Protein 7.4, Albumin 3.7, Thyroid Stimulating Hormone (TSH) 1.40 Assessment/Plan Assessment and Plan 1. Acute Dyspnea/Stridor/Wheezing--Admit directly to medical floor and check CXR, lab and start IV solumedrol and routine SVNS with duoneb 2. Acute URI--check lab and monitor temperature 3. Anxiety--will see if improves with decrease work of breathing Problems: Clinical Quality Measures DVT/VTE Risk/Contraindication: Risk Factor Score Per Nursin RFS Level Per Nursing on Admit: 2=Moderate EULALIA LOVE DO Jul 06, 2017 6:31 pm
[2017-07-06 20:00] VITALS: BP 109/71
[2017-07-06] MEDS ORDERED: RT-epiNEPHrine (RACEMIC) 2.25% 0.5 ML VIAL INH NR (20:00)
[2017-07-06] MEDS ORDERED: ACETAMINOPHEN 500 MG TAB (TYLENOL) PO PRN (20:00)
[2017-07-06] MEDS ORDERED: DIAZEPAM 5 MG (VALIUM) TABLET PO NR (20:00)
[2017-07-06] MEDS ORDERED: CATHETER FLUSH 10 ML SYR IV PRN (20:00)
[2017-07-06] MEDS: FAMOTIDINE 20 MG (PEPCID) TABLET PO SCH (20:48)
[2017-07-06] MEDS: methylPREDNISolone 40 MG/ML (Solu-MEDROL) VIAL IV SCH (23:43)
[2017-07-07] VITALS: BP 104/73
[2017-07-07 04:00] VITALS: BP 126/68
[2017-07-07] MEDS: RT-ALBUTEROL/IPRATROPIUM 3 ML (DUONEB) VIAL INH SCH ×6 (05:43→22:37)
[2017-07-07] MEDS: methylPREDNISolone 40 MG/ML (Solu-MEDROL) VIAL IV SCH ×2 (05:45→21:08)
[2017-07-07] MEDS: NS IV 1000 ML 1,000 ML IV SCH (07:01)
[2017-07-07 08:00] VITALS: BP 130/68
[2017-07-07] MEDS: FAMOTIDINE 20 MG (PEPCID) TABLET PO SCH ×2 (08:29→21:07)
[2017-07-07] MEDS ORDERED: KETOROLAC 30 MG/ML VIAL IVP NR (10:00)
[2017-07-07] MEDS ORDERED: CHLORASEPTIC LOZENGE MM PRN (10:15)
--- NOTE | 2017-07-07 11:33 | Progress Note (SOAP) ---
Subjective Date Seen by Provider: Jul 07, 2017 Time Seen by Provider: 11:29 Subjective/Events-last exam Fwup acute dyspnea, tracheobronchitis with stridor and hoarseness, acute URI. C /O headache from nebulizer treatments and more sinus congestion today. States does feel quite as swollen in upper airways and throat. Objective Exam Vital Signs Date Time Temp Pulse Resp B/P (MAP) Pulse Ox O2 Delivery O2 Flow Rate FiO2 07/07/17 10:38 96 Room Air 07/07/17 08:00 96.4 99 20 130/68 (88) 93 Room Air 07/07/17 06:00 96 Room Air 07/07/17 04:00 98.4 94 19 126/68 (87) 98 Room Air 07/07/17 00:00 96.6 118 16 104/73 (83) 96 Room Air 07/06/17 23:09 98 Room Air 07/06/17 20:26 97 Room Air 07/06/17 20:00 96.9 107 20 109/71 (84) 91 Room Air 07/06/17 19:25 97 Room Air 07/06/17 16:00 97.0 105 18 116/82 (93) 96 Room Air 07/06/17 12:30 98 Room Air 07/06/17 12:00 97 Room Air 07/06/17 12:00 98.7 96 24 125/65 (85) 97 Room Air I & O 07/07/17 07:00 Intake Total 1360 ml Output Total 1100 ml Balance 260 ml Capillary Refill : General Appearance: Mild Distress Neck: Supple Respiratory: Lungs Clear, Decreased Breath Sounds Cardiovascular: Regular Rate, Rhythm Gastrointestinal: normal bowel sounds, non tender, soft Extremity: Non Tender, No Calf Tenderness, No Pedal Edema Neurologic/Psychiatric: Alert, Oriented x3 Results Lab Laboratory Tests 07/06/17 13:09: White Blood Count 6.3, Red Blood Count 4.72, Hemoglobin 13.1, Hematocrit 39, Mean Corpuscular Volume 82, Mean Corpuscular Hemoglobin 28, Mean Corpuscular Hemoglobin Concent 34, Red Cell Distribution Width 14.8H, Platelet Count 235, Mean Platelet Volume 9.2, Neutrophils (%) (Auto) 61, Lymphocytes (%) (Auto) 25, Monocytes (%) (Auto) 13H, Eosinophils (%) (Auto) 1, Basophils (%) (Auto) 0, Neutrophils # (Auto) 3.8, Lymphocytes # (Auto) 1.6, Monocytes # (Auto) 0.8, Eosinophils # (Auto) 0.1, Basophils # (Auto) 0.0, Erythrocyte Sedimentation Rate 45H, D-Dimer 0.41, Sodium Level 136, Potassium Level 3.4L, Chloride Level 104, Carbon Dioxide Level 23, Anion Gap 9, Blood Urea Nitrogen 8, Creatinine 0.87, Estimat Glomerular Filtration Rate > 60, BUN/Creatinine Ratio 9, Glucose Level 116H, Calcium Level 8.9, Total Bilirubin 0.2, Aspartate Amino Transf (AST/ SGOT) 20, Alanine Aminotransferase (ALT/SGPT) 23, Alkaline Phosphatase 65, Total Protein 7.4, Albumin 3.7, Thyroid Stimulating Hormone (TSH) 1.40 Assessment/Plan Assessment/Plan Assess & Plan/Chief Complaint 1. Acute Dyspnea--oxygen saturation stable and all upper airway 2. Acute Stridor/Tracheobronchitis--wean IV solumedrol and add pulmicort, continue SVNs with duoneb 3. Acute URI--viral etiology Clinical Quality Measures DVT/VTE Risk/Contraindication: Risk Factor Score Per Nursin RFS Level Per Nursing on Admit: 2=Moderate RACHID DIAL DO Jul 07, 2017 11:33
[2017-07-07 12:00] VITALS: BP 115/83
[2017-07-07] MEDS: guaiFENesin/CODEINE (ROBITUSSIN AC) 10ML UDC PO PRN ×2 (13:01→21:07)
[2017-07-07] MEDS: ENOXAPARIN 40 MG/0.4 ML (LOVENOX) SYR SC SCH (13:01)
[2017-07-07 16:00] VITALS: BP 116/59
[2017-07-07] MEDS: RT-BUDESONIDE NEBS 0.5 MG/2ML (PULMICORT) AMP INH SCH (19:34)
[2017-07-07 19:41] VITALS: BP 125/58
[2017-07-07] MEDS ORDERED: DIAZEPAM 5 MG (VALIUM) TABLET PO SCH (21:00)
[2017-07-07] MEDS: KETOROLAC 30 MG/ML VIAL IVP PRN (21:07)
[2017-07-08 00:30] VITALS: BP 137/67
[2017-07-08] MEDS: RT-ALBUTEROL/IPRATROPIUM 3 ML (DUONEB) VIAL INH SCH ×3 (02:00→11:08)
[2017-07-08 04:00] VITALS: BP 145/63
[2017-07-08] MEDS: RT-BUDESONIDE NEBS 0.5 MG/2ML (PULMICORT) AMP INH SCH (07:00)
[2017-07-08] MEDS: guaiFENesin/CODEINE (ROBITUSSIN AC) 10ML UDC PO PRN (07:15)
[2017-07-08 08:30] VITALS: BP 135/64
[2017-07-08] MEDS: methylPREDNISolone 40 MG/ML (Solu-MEDROL) VIAL IV SCH (08:48)
[2017-07-08] MEDS: FAMOTIDINE 20 MG (PEPCID) TABLET PO SCH (08:48)
[2017-07-08] MEDS: KETOROLAC 30 MG/ML VIAL IVP PRN (08:52)
[2017-07-08] MEDS ORDERED: INFLUENZA TRIvalent 2017-2018 0.5 ML/45 MCG SYR IM ONE (11:07)
[2017-07-08] MEDS ORDERED: BENZ-13 PO (11:26)
[2017-07-08] MEDS ORDERED: DIAZ5TAB3 PO (11:28)
[2017-07-08 11:56] VITALS: BP 135/64
--- NOTE | 2017-07-12 15:00 | Physician Query-Final Dx ---
Final Diagnosis Give Final Diagnosis Please give Final Diagnosis CARLY RODRIGUEZ Jul 12, 2017 15:00
== END 2017-07-08 10:45 | disposition home or self-care (01) ==
LOC: 4TH 11:55 → UNDOADMOB 11:55 → 4TH 12:00 → UNDODISOB 07-08 12:00
PROVIDERS: ADMIT Family Medicine; ATTEND Family Medicine
DX: J20.9 Acute bronchitis, unspecified (principal); R06.1 Stridor; R06.00 Dyspnea, unspecified; J06.9 Acute upper respiratory infection, unspecified; Z23 Encounter for immunization
CPT/HCPCS: 36415; 71046; 80053; 84443; 85025; 85379; 85652; 94640; 94760; 99211; G0378

== ENCOUNTER → 2017-10-18 | Outpatient (CLI) | payer BC ==
[~2017-10-18] MED LIST changes: +BENZ-13 PO; +DIAZ5TAB3 PO; +HYDR-3870 PO; -HYDR-3874 PO
--- NOTE | 2017-10-18 14:44 | Diagnostic Imaging Report ---
Indication: Right knee pain 3 views of the right knee shows small osteophytes of the superior aspect of patellofemoral joint and in the lateral tibiofemoral joint space. There is no fracture, dislocation or pathologic effusion. Impression: Mild degenerative changes right knee. No acute abnormality seen. Dictated by: Dictated on workstation # [id number]
== END ==
LOC: RAD 13:48
PROVIDERS: ATTEND Nurse Practitioner Family
DX: M17.11 Unilateral primary osteoarthritis, right knee (principal)
CPT/HCPCS: 73562

== ENCOUNTER → 2018-02-23 | Outpatient (CLI) | payer BC ==
[~2018-02-23] MED LIST changes: -BENZ-13 PO; +BENZ100C18 PO; -OXYC-197 PO; +OXYC1TAB87 PO
--- NOTE | 2018-02-23 11:23 | Diagnostic Imaging Report ---
Clinical indication: Patient with right knee pain. Patient complains of fall in September with subsequent fall in October where she landed on right patella. Patient complains of medial and lateral pain with intermittent swelling and catching since second fall. Exam: X-ray of the right knee, 3 views. Comparison: X-ray of the right knee dated 10/18/2017. Findings: There is no acute fracture or dislocation. There is no knee effusion. Stable mild to moderately hypertrophic tricompartmental spurs. There is mild medial compartment narrowing on these nonweightbearing views. Impression: 1: There is no acute fracture or dislocation. 2: Stable mild to moderate degenerative disease of the right knee. The ordering physician's public safety officer was notified regarding the results and availability of this report on 02/23/2018 at 1115 hrs. Dictated by: Dictated on workstation # [id number]
== END ==
LOC: RAD 10:50
PROVIDERS: ATTEND Nurse Practitioner Family
DX: M17.11 Unilateral primary osteoarthritis, right knee (principal)
CPT/HCPCS: 73562

== ENCOUNTER → 2018-03-03 | Outpatient (CLI) | payer BC ==
--- NOTE | 2018-03-03 09:34 | Diagnostic Imaging Report ---
PROCEDURE: MRI right joint lower extremity without contrast. TECHNIQUE: Multiplanar, multisequence non contrast-enhanced MRI of the right lower extremity was accomplished. INDICATION: Twisting injury with painful swelling. While I have no previous for direct comparison, study is interpreted in correlation with plain films dated 02/23/2018. The anterior posterior cruciate ligaments are well-visualized and normal. The patellar and quadriceps tendons are intact. The medial and lateral collateral ligament complex components crossing the knee joint are intact. There is no bone contusion, marrow edema, osteochondral injury or fracture pattern. No evidence for a joint effusion. No loose body is apparent. Patellar and trochlear articular cartilage is maintained. There is mild medial greater than lateral tibiofemoral compartmental Osteoarthritic joint space narrowing and cartilaginous thinning. There is some intrasubstance degenerative signal involving the posterior horn medial meniscus and lateral meniscus but no jessica meniscal tear could be identified. The meniscal roots intact. No subluxation of the menisci. IMPRESSION: Mild arthritis. No fracture or bone contusion. No loose body. No tendon or ligament rupture and no appreciable meniscal tear. Dictated by: Dictated on workstation # [id number]
== END ==
LOC: RAD 07:53
PROVIDERS: ATTEND Nurse Practitioner Family
DX: S89.91XA Unspecified injury of right lower leg, initial encounter (principal); X50.1XXA Overexertion from prolonged static or awkward postures, initial encounter; M17.11 Unilateral primary osteoarthritis, right knee
CPT/HCPCS: 73721